=== PATIENT | female | born 1935 | race Caucasian/White ===

== ENCOUNTER 2016-11-23 11:00 | Day surgery (SDC) | payer MEDICARE, BC ==
[~2016-11-23 11:00] MED LIST: Bupivacaine 0.25% SDV* 30 ML ONE
[2016-11-23] MEDS ORDERED: ceFAZolin 2 GM PREMIX (*) 50 ML IVPB ONE (11:21)
[2016-11-23] MEDS ORDERED: fentaNYL* 50 MCG/ML 2 ML VIAL (100 MCG VIAL) ONE (13:10)
[2016-11-23] MEDS ORDERED: Midazolam* 1 MG/ML 2 ML VIAL (2 MG) ONE (13:10)
[2016-11-23] MEDS ORDERED: Lidocaine 2% PF * 5 ML VIAL ONE (13:11)
[2016-11-23] MEDS ORDERED: Propofol* 10 MG/ML 20 ML BTL IV PUSH ONE (13:11)
[2016-11-23] MEDS ORDERED: Acetaminophen TAB* 325 MG PO PRN (13:20)
[2016-11-23] MEDS ORDERED: Ondansetron INJ* 2 MG/ML VIAL IV PRN (13:20)
[2016-11-23 13:54] VITALS: BP 132/64
--- NOTE | 2016-11-25 00:57 | OP ---
OPERATIVE REPORT: DATE OF OPERATION: 11/23/16 DATE OF : 39 SURGEON: Luis Hull MD SHIRT SORTER: None. ANESTHESIOLOGIST: Dr. Lewis. ANESTHESIA: Local MAC. PRE-OP DIAGNOSIS: Left carpal tunnel syndrome. POST-OP DIAGNOSIS: Left carpal tunnel syndrome. OPERATIVE PROCEDURE: Left open carpal tunnel release. INDICATIONS: Caprice has had progressive left carpal tunnel symptoms that are significantly impact ing her life. We talked about risks and benefits. She wanted to proceed. FINDINGS: As expected. ESTIMATED BLOOD LOSS: 2 mL. COMPLICATIONS: None. DESCRIPTION OF PROCEDURE: Caprice was seen in the preoperative holding area. The correct side, si te, and procedure were identified. We came back to the operating room. She got some anesthesia. I infiltrated the operative area with 0.25% plain Marcaine. The arm was then prepped and draped in t he usual fashion. A time-out was performed. I exsanguinated the arm with the Esmarch and the tourniquet was inflated to 250 mmHg. I then made a longitudinal incision over 2 to 3 cm in the typical location for an open carpal tunnel release. Di ssection was carried down through the subcutaneous tissue and palmar fascia. The transverse carpal ligament was released just off the radial aspect of the hook of the hamate. The release was complet ed distally and then proximally, I released the fascia and subcutaneous tissue and retracted that vo larly and ulnarly with a David retractor. Then, I used a tenotomy scissors to release the remainder of the transverse carpal ligament. I checked proximally and distally and there was absolutely no co mpression on the nerve. Therefore, I went ahead and irrigated out the wound. Skin was closed with 4 -0 nylon suture. The wound was dressed with Xeroform, 4x4's, sterile Webril, and an Phoenix bandage. T ourniquet was deflated. She was then taken to the recovery room in stable condition. [id number]/[facility] #: [id number]
== END 2016-11-23 14:05 | disposition home or self-care (01) ==
LOC: OREAST 11:00
PROVIDERS: ATTEND Orthopaedic Surgery Hand Surgery
DX: G56.02 Carpal tunnel syndrome, left upper limb (principal); I10 Essential (primary) hypertension; Z87.891 Personal history of nicotine dependence; M19.90 Unspecified osteoarthritis, unspecified site
CPT/HCPCS: J0690; J2250; J2704; J3010

== ENCOUNTER 2017-02-13 07:30 | Inpatient (IN) | payer MEDICARE, BC ==
--- NOTE | 2017-02-04 20:35 | HP ---
PREOPERATIVE HISTORY AND PHYSICAL: DATE OF SURGERY/ADMISSION: 02/13/17 DATE OF OFFICE VISIT/ENCOUNTER: 01/31/17 ATTENDING SURGEON: Anisa Anne MD * (DICTATED BY SHANTEL LUNA) PROCEDURE: Left total knee replacement. CHIEF COMPLAINT: Left knee pain. HISTORY OF PRESENT ILLNESS: This is a 81-year-old female with over 5 years of increasingly severe left knee pain. 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 She has failed conservative treatment measures and now has elected to proceed with surgical intervention in the form of a left total knee arthroplasty. Surgery is scheduled for 02/13/[address] Anne. PAST MEDICAL HISTORY: 1. Hypertension. 2. Osteoarthritis. PAST SURGICAL HISTORY: 1. Appendectomy. 2. Left carpal tunnel release by Dr. Hull. 3. Tonsillectomy. CURRENT MEDICATIONS: Amlodipine besylate/valsartan 5/160 mg daily. ALLERGIES: TRAMADOL, HYDROCODONE, and FLAGYL cause nausea and vomiting; TESSALON PERLES causes hives. FAMILY MEDICAL HISTORY: Cancer, hypertension. SOCIAL HISTORY: The patient is retired. She lives with her . She exercises sporadically. She denies tobacco use, recreational drug use, and does not drink alcohol. REVIEW OF SYSTEMS: General: Negative for fevers, chills, or night sweats. No known anesthesia problems. HEENT: Negative for headache, lightheadedness, or syncopal episodes. Integumentary: Negative for abrasions, lesions, or open wounds. Cardiothoracic: Positive for hypertension. Negative for chest pain, palpitations, or edema. Pulmonary: Negative for shortness of breath with exertion, chronic cough, COPD. GI: Negative for nausea, vomiting, diarrhea, constipation, or GERD. : Negative for nocturia, urinary frequency, urgency, history of UTIs, or kidney problems. Musculoskeletal: Positive for current complaint. Negative for chronic or intermittent back pain or history of fractures. Neurologic: Negative for paresthesias, numbness, history of seizure , stroke, or epilepsy. Endocrine: Negative for diabetes or thyroid issues. Hematologic: Negative for bleeding disorders, easy bruising, anemia, excessive bleeding, or history of DVT. Infectious Disease: Negative for history of MRSA , hepatitis C, or HIV. PHYSICAL EXAMINATION GENERAL: Well-developed, well-nourished 81-year-old female in no acute distress. VITAL SIGNS: Height 5 feet tall, weight 130 pounds, blood pressure 134/68, pulse rate 76. HEENT: Normocephalic, atraumatic. Pupils are equal, round, and reactive to light and accommodation. Extraocular movements are intact. Throat is clear. NECK: Supple. No palpable lymph nodes. PULMONARY: Lungs are clear to auscultation bilaterally. No wheezes, rales, or rhonchi. ABDOMEN: Positive bowel sounds, soft, nontender. NEUROLOGICAL: Alert and oriented x3. Cranial nerves II through XII are intact. Sensation is intact to light touch. MUSCULOSKELETAL: On exam of her left knee, skin is intact. She has range of motion of approximately 5 degrees to 125 degrees with patellofemoral crepitus. There is tenderness to palpation over both joint lines and a mild joint effusion. 2+ dorsalis pedis pulse and intact sensation. Lower extremity muscle group strengths are intact 5/5. IMAGING STUDIES: X-rays of the left knee show end-stage osteoarthritis. ASSESSMENT: Left knee end-stage osteoarthritis. PLAN: Caprice Ceballos is a 81-year-old female with left knee pain, osteoarthritis. She has failed conservative management and has elected to proceed with a left total knee arthroplasty with Dr. Anne on 02/13/17. Dr. Anne discussed the risks and benefits of surgery at today's visit and all of her questions were answered. Postoperatively, she will use Percocet for pain management, Coumadin for DVT prophylaxis, and also stool softener for constipation caused by narcotic pain medication. She will also have Zofran on hand as needed for nausea. All of these prescriptions were e-scribed to the patient's pharmacy today. We will plan on having her back for followup in the office with Dr. Anne in 2 weeks after surgery. SHANTEL LUNA [id number]/[facility] #: [id number] MTDD
[~2017-02-13 07:30] MED LIST changes: +Buffered Lidocaine 0.9% SYRIN* 5 ML/SYR SYRINGE INTRADERM ONE; -Bupivacaine 0.25% SDV* 30 ML ONE; +Sodium Citrate/Citric Acid* 15 ML UDC PO ONE
--- OUTSIDE RECORDS SUMMARY | 2017-02-13 08:48 | XMS REPORT ---
:1935 External Reference #:[id number] Author Organization [employer] Address [address] [address] Phone [phone] Care Team Providers Name Role Phone Eloisa Cooney NP Primary Care Physician Unavailable Payers Type Date Identification Numbers Payment Provider Subscriber Medicare Primary Effective: Policy Number: Medicare Caprice Varela 2000 [id number] Tucker PayID: [id number] [address] [place] [address] Medigap Part B Expires: 2016 Policy Number: [id number] [facility] Caprice Ceballos PayID: [id number] [address] [place] [address] Medigap Part B Expires: 2016 Policy Number: BS [facility] Caprice Ceballos [id number] PayID: [id number] [address] [address] Medigap Part B Policy Number: [id number] [facility] Caprice Ceballos Group Name: [id number] PayID: [id number] [address] [address] Problems Date Description Provider Status Onset: 09/20/2016 Localized, primary osteoarthritis Anisa Anne M.D. Active Onset: 11/08/2016 Bilateral carpal tunnel syndrome Luis Hull MD Active Family History Date Family Member(s) Problem(s) Comments General Hypertension General Cancer Social History Type Date Description Comments Lives With Occupation Retired ETOH Use Denies alcohol use Smoking Patient has never smoked Exercise Type/Frequency Exercises sporadically Allergies, Adverse Reactions, Alerts Date Description Reaction Status Severity Comments 09/20/2016 Metronidazole active 09/20/2016 Hydrocodone active 09/20/2016 Benzonatate active 01/10/2017 Tramadol Nausea and Vomiting active Severe Medications Medication Date Status Form Strength Qnty SIG Indications Ordering Provider Amlodipine Active Tablets 5-160mg Unknown Besylate-Vals 000 dyan Tramadol Hx Tablets 37.5-325mg 30tabs 1-2 tab Luis Hydrochloride 017 - by mouth MD Della /Acetaminophe every 4-6 n 017 hours as needed Amlodipine Hx Tablets 5mg 1 by Unknown Besylate 000 - mouth every day 017 Valsartan Hx Tablets 160mg 1 by Unknown 000 - mouth every day 017 Medications Administered in Office Medication Date Status Form Strength Qnty SIG Indications Ordering Provider Depomedrol Administered Injection Anisa 40MG 017 Ivana Anne Depomedrol Administered Injection Dirk Wilbert, 40MG 010 Ivana Vital Signs Date Vital Result Comment 01/31/2017 Height 60 inches 5'0" Weight 130.00 lb BP Systolic 134 mmHg BP Diastolic 68 mmHg Respiratory Rate 20 /min Body Temperature 98.5 F Pain Level 0 BMI (Body Mass Index) 25.4 kg/m2 01/10/2017 Height 60 inches 5'0" Weight 126.00 lb Heart Rate 76 /min BP Systolic Sitting 148 mmHg BP Diastolic Sitting 80 mmHg Body Temperature 98.5 F BMI (Body Mass Index) 24.6 kg/m2 12/06/2016 Height 60 inches 5'0" Weight 125.00 lb Heart Rate 72 /min BP Systolic 140 mmHg BP Diastolic 74 mmHg Body Temperature 98.8 F Pain Level 0 BMI (Body Mass Index) 24.4 kg/m2 11/08/2016 Height 60 inches 5'0" Weight 125.00 lb Heart Rate 82 /min BP Systolic Sitting 137 mmHg BP Diastolic Sitting 78 mmHg Respiratory Rate 14 /min Body Temperature 99.2 F Pain Level 0 BMI (Body Mass Index) 24.4 kg/m2 09/20/2016 Height 60 inches 5'0" Weight 130.00 lb Respiratory Rate 18 /min Pain Level 5 only when walking BMI (Body Mass Index) 25.4 kg/m2 Results Description No Information Procedures Date CPT Code Description Status 11/23/2016 56981 Carpal Tunnel Release Completed 09/20/2016 Inject/Drain Joint/Bursa Major Completed 02/02/2010 74276 Xray Knee 3 Views Completed 02/02/2010 14500 Rad Exam; Knee, Ap&L Completed 02/02/2010 Inject/Drain Joint/Bursa Major Completed Encounters Type Date Location Provider CPT E/M Dx Office Visit 11/08/2016 [place] [address] G56.03 1:45p [facility] Office Visit 09/20/2016 [facility] Anisa Anne M.D. 42723 M25.562 9:30a [facility] M25.462 M17.12 Office Visit 01/04/2014 5:26p [facility], Jimena Coyle N.P. 28110 558.9 Hospitalists [phone] Office Visit 01/03/2014 5:25p [facility], Jimena Coyle N.P. 46231 790.6 Hospitalists [phone] Office Visit 02/02/2010 9:00a [facility] M.D. 54109 716.96 [facility] Plan of Care Future Appointment(s):02/23/2017 10:15 am - Anisa Anne M.D. at [facility]02/13/2017 8:30 am - Anisa Anne M.D. at [facility]01/31/2017 - Anisa Anne M.D.M17.12 Unilateral primary osteoarthritis, left kneeFollow up:Follow up: 2 weeks post op
--- OUTSIDE RECORDS SUMMARY | 2017-02-13 08:50 | XMS REPORT ---
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 Type Date Identification Numbers Payment Provider Subscriber Medicare Primary Effective: Policy Number: Medicare Caprice Varela 2012 [id number] [place] PayID: [id number] [address] [place] [address] [place] Policy Number: [id number] BC[employer] Fep Caprice Ceballos PayID: [id number] [address] [address] [place] [address] Commercial Policy Number: [id number] [facility] Ceballos PayID: [id number] [address] [place] [address] Problems Date Description Provider Status Onset: 01/26/2005 Benign essential hypertension Eloisa Cooney, RN MS HVAC ENGINEER Active Family History Date Family Member(s) Problem(s) Comments Father Hypertension Father Cancer, Lung Father Esophageal Constriction Mother Hypertension Mother Cancer, Colon Mother Cancer, Liver First Son Hypertension Second Son Hypertension Paternal Grandfather Cancer Maternal Grandmother Cancer, Colon Maternal Aunts Cancer, Colon Social History Type Date Description Comments Education Highest Level Completed 12th grade Marital Status Legal Status: for 54years(2012) Lives With Spouse Pets None Occupation Retired Occupation from [employer] RIGHT-handed Cigarette Use Former Cigarette Smoker 1/2 Pack Daily for 5 years Cigarette Use quit at age 22's ETOH Use Denies alcohol use Smoking Patient is a former smoker Daily Caffeine does not consume caffeine Allergies, Adverse Reactions, Alerts Date Description Reaction Status Severity Comments 01/05/2014 Flagyl Nausea and Vomiting, nausea active 01/17/2017 Hydrocodone active Severe Nausea 01/17/2017 Tramadol active Severe Nausea 01/17/2017 Tessalon active Hives 01/30/2005 NKDA inactive Medications Medication Date Status Form Strength Qnty SIG Indications Ordering Provider Augmented 01/17 Active Ointment 0.05% 50gm apply to L29.2 Eros Betamethasone affected Eloisa Dipropionate area twice SALVADOR Fisher MS a day prn HVAC ENGINEER Ondansetron 01/17 Active Tablets 4mg 30tabs one-two R11.0 ROSAURA Cooney tabs as Eloisa needed Phillip RN MS every 8 HVAC ENGINEER hours for nausea Amlodipine 07/04 Active Tablets 5-160mg 90tabs 1 by mouth I10 Eros Besylate-Valsa every day Eloisa rtan Phillip RN MS HVAC ENGINEER Amlodipine 06/15 Hx Tablets 10mg 90tabs 1 by mouth I10 Chase Cooneyylate every day Eloisa Fisher RN MS 07/26 Zofran 04/08 Hx Tablets 4mg 30tabs 1-2 tabs Eros every 6 Eloisa - hours as Phillip RN MS 06/15 needed for nausea or vomiting( er) Ciprofloxacin 01/05 Hx Tablets 500mg 14tabs 1 by mouth ROSAURA Flores twice a Suzy - day MD Vanesa 01/16 Ondansetron 01/05 Hx Tablets 4mg 6tabs 1 tablet Dispers by mouth Suzy - every 6-8 MD Vanesa 02/18 hours needed for nausea/vom iting Clindamycin 01/05 Hx Capsules 300mg 15caps three MarkROSAURA times a Suzy - day x 5 MD Vanesa Amlodipine 12/24 Hx Tablets 5mg 90tabs 1 by mouth I10 Chase Cooneyylate every day Eloisa Fisher RN MS 06/15 HVAC ENGINEER Metronidazole 12/24 Hx Tablets 500mg 21tabs 1 tab 789.04 Eros, three Eloisa - times a SALVADOR Fisher MS 01/05 day x 7 HVAC ENGINEER days Ciprofloxacin 12/24 Hx Tablets 250mg 10tabs 1 by mouth 789.04 ROSAURA Cooney twice a Eloisa - day till Phillip RN MS 12/24 gone Glucosamine 12/24 Hx Capsules 1500Com One tid Eros 1500 Eloisa iFsher RN MS 01/17 Sulfamethoxazo 12/24 Hx Tablets 800-160mg 14tabs one tab 789.04 lilliam Cooney/Trimethopri twice a Eloisa chapa DS - day x SALVADOR Fisher MS 12/31 7days Amlodipine 11/20 Hx Tablets 2.5mg 90tabs 1 by mouth 401.1 Chase Cooney every day Eloisa Fisher RN MS 12/24 Zithromax 01/20 Hx Tablets 250mg 1tabs take as 465.9 Darío, Z- directed Mateusz Burk MD 12/24 Azithromycin 12/26 Hx Tablets 250mg 6tabs 2 tabs day 465.9 one and 1 Eloisa - tab daily SALVADOR Fisher MS 01/20 till Medrol Dosepak 12/26 Hx Tablets 4mg 1tabs use as 465.9 directed Eloisa Fisher RN MS 12/24 Benicar 11/07 Hx Tablets 20mg 90tabs 1 po qd 401.1 Eloisa Fisher RN MS 12/26 Prednisone 01/31 Hx Tablets 10mg 30tabs 4Tabs qam 493.00 X 3 Days Eloisa - Then 3 PO SALVADOR Fisher MS 10/30 qam X 3D Then 2 PO qam X 3D Then 1 PO qam X 3 D Azithromycin 01/25 Hx Tablets 250mg 1Pack 2 tabs day 466.0 guicho one and 1 Caitlin - tab daily MD Myah 10/30 till Ventolin HFA 01/25 Hx Aerosol 108(90Bas 1Can 2 p qid 466.0 Shaquille e) mcg/ac prn cough, Caitlin - wheeze MD Myah 06/15 Actonel 05/24 Hx Tablets 150mg 3tabs one tab 733.90 Darío monthly as Mateusz Burk. 12/24 Azithromycin 04/08 Hx Tablets 250mg 6tabs 2 tabs day 386.11 Eros one and 1 Eloisa - tab daily Phillip, RN MS 04/18 till gone Diprolene 04/08 Hx Ointment 0.05% 50gm apply to L29.2 affected Caitlin - area twice MD Myah 01/17 a day prn Advair Diskus 04/08 Hx Misc 100-50mcg 1units inhale 1 493.00 /Dose dose by Eloisa - mouth Phillip RN MS 04/08 twice a day Advair HFA 04/08 Hx Aerosol 115-21mcg 2 Puffs 493.00 /Act bid Eloisa Fisher RN MS 01/25 Fosamax Plus 04/21 Hx 5600Units 1 po qwk Shaquille, Caitlin Chapa MD 10/10 Azithromycin 03/03 Hx Tablets 250mg 6tabs 2 tabs day 465.9 one and 1 Eloisa - tab daily SALVADOR Fisher MS 03/13 till gone Nasonex 03/03 Hx Suspension 50mcg/Act Samples 2 Sprays 465.9 Each Eloisa - Nostril SALVADOR Fisher MS 03/13 Daily Duoneb 07/01 Hx Solution for use in her Eloisa - nebulizer Phillip RN MS 04/08 at home tid Prednisone 06/30 Hx Tablets 10mg 30tabs 4Tabs qam 493.00 guicho X 3 Days Caitlin - Then 3 PO MD Myah 03/03 qam X 3D Then 2 PO qam X 3D Then 1 PO qam X 3 D Prednisone 05/27 Hx Tablets 10mg 50tabs 4Tabs qam 493.00 guicho X 5 Days Caitlin - Then 3 PO MD Myah 06/30 qam X 5D Then 2 PO qam X 5D Then 1 PO qam X 5 D Prednisone 05/09 Hx Tablets 20mg 6tabs 2 Q Am X 3 493.00 Shaquille D Caitlin Chapa MD 05/27 Benicar 05/06 Hx Tablets 20mg 90tabs 1 po qd 401.1 Eloisa Fisher RN MS 10/10 HVAC ENGINEER /2011 Soma 05/06 Hx Tablets 350mg 30tabs 1/2-1 PO 724.3 guicho QHS prn Caitlin Chapa MD 06/30 Darvocet-N 100 05/06 Hx Tablets 100 40tabs 1 po qid 724.3 guicho prn pain Caitlin Chapa MD 06/30 Symbicort 05/06 Hx Aerosol 80-4.5 Sample 2P bid 493.00 Shaquille Rinse Caitlin - Eugene Chapa MD 05/06 After Singulair 05/06 Hx Tablets 10mg 30tabs One PO qd 493.00 Shaquille prn Caitlin Chapa MD 03/03 Fexofenadine 05/06 Hx Tablets 180mg 90tabs 1 po qd 493.00 Shaquille prn Caitlin Chapa MD 03/03 Symbicort 05/06 Hx Aerosol 160-4.5 3units 2p bid 493.00 rinse Caitlin - eugene Chapa MD 04/08 after Hydrocodone/Ac 04/17 Hx Tablets 5-500mg 100tabs 1 tab 724.3 Eros, etamin every 4 Eloisa - hours for SALVADOR Fisher MS 05/06 pain as needed Prednisone 04/17 Hx Tablets 10mg 30tabs 4 Tabs 466.0 For3 Eloisa - Days,3 Phillip RN MS 05/06 Tabs For 3 Days, 2 Tabs For 3 Days 1 Tab For 3 Days Azmacort 04/17 Hx Aerosol 75mcg/Act sample 2 466.0 inhalation Eloisa - s tid Phillip RN MS 05/06 Prednisone 03/19 Hx Tablets 10mg 30tabs 4Tabs qam 493.00 guicho X 3 Days Caitlin - Then 3 PO MD Myah 04/05 qam X 3D Then 2 PO qam X 3D Then 1 PO qam X 3 D 4 Duoneb 03/19 Hx Solution 1Box 1 qid prn Shaquille Caitlin Chapa MD 04/05 Nebulizer 03/19 Hx dx: guicho extrinsic Caitlin - asthma MD Myah 04/05 Avelox 02/25 Hx Tablets 400mg 7tabs 1 PO qd X 466.0 7D Caitlin Chapa MD 03/05 Prednisone 02/25 Hx Tablets 20mg 6tabs 2 Q Am X 3 466.0 D Caitlin Chapa MD 03/05 Proair Hfa 02/25 Hx Aerosol 108mcg/Ac 1Can 2 P bid 466.0 guicho t And Up To Caitlin - qid prn MD Myah 04/08 Azithromycin 02/13 Hx Tablets 250mg 6tabs 2 tabs day 466.0 one and 1 Eloisa - tab daily SALVADOR Fisher MS 02/23 till gone Robitussin ac 02/13 Hx 120cc 1-2 tsp 466.0 qid prn Eloisa Fisher RN MS 02/23 Diprolene 09/04 Hx 1Tube To Aff 616.10 Shaquille, Oint Area bid Caitlin - prn X 2 MD Myah 06/30 Weeks Only Desonide 07/27 Hx Cream 0.05% 1Tube apply bid 616.10 sparingly Eloisa Fisher RN MS 06/30 Fosamax W/ Vit 04/10 Hx Tablets 70mg 12tabs 1 po qweek Vickie, on empty Caitlin - stomach as MD Myah 04/21 Singulair 02/17 Hx Tablets 10mg 30tabs 1 po qd Trabout Mateusz Burk MD 07/27 Robitussin A-c 01/30 Hx Syrup 100mg;10m 120ml 2 TSP QHS lena g/5ML prn Cough Mateusz Burk MD 05/11 Ketek 01/30 Hx Tablets 400mg 20tabs 2 po qd 465.9 Trablena Mateusz Burk MD 05/11 Z-Pack 01/26 Hx Capsules 250mg 1Pack as 465.9 Eros directed Eloisa Fisher RN MS 01/30 Tessalon 01/24 Hx Perles 100mg 40units 1 po tid [facility] Caitlin Chapa MD 01/30 Desonide 01/10 Hx Cream 0.05% 15gm rub in [facility] sparingly Caitlin Chapa MD 02/13 Medications Administered in Office Medication Date Status Form Strength Qnty SIG Indications Ordering Provider Depo Medrol 40 Administered Injection Trabout, MG 001 MD Wm Immunizations CPT Code Status Date Vaccine Lot # [id number] Given 10/31/2016 Influenza Vac, 3 Yrs & Older, Quadrivalent, [id number] Split, [place] 98[address] Given 02/16/2016 Prevnar 13 Pneumococal Conjugate Vaccine [id number] 23520 Given 10/25/2015 Influenza Vac, 3 Yrs & Older, Quadrivalent, [id number] Split, [place] Use 04273 Given 11/23/2014 Influenza Vac, 3 Yrs & Older, Quadrivalent, Split, [place] Use 13565 Given 11/23/2014 Influenza Vac, 3 Yrs & Older, Quadrivalent, [id number] Split, Im Use Q2038 Given 11/20/2013 Fluzone Trivalent Immunization [id number] 81538 Given 11/07/2012 Pneumococcal 23 Immunization Adult Or [id number] Immunosuppressed Patient Q2038 Given 11/07/2012 Fluzone Trivalent Immunization 41007 Given 11/07/2012 Pneumococcal 23 Immunization Adult Or Immunosuppressed Patient Q2038 Given 11/07/2012 Fluzone Trivalent Immunization [id number] Q2038 Given 11/28/2011 Fluzone Trivalent Immunization [id number] Q2038 Given 11/22/2010 Fluzone Trivalent Immunization [id number] 73247 Given 05/24/2010 Tetanus And Diptheria Toxoids For Adult [id number] Use-preservative free 54111 Given 11/17/2009 Afluria Or Fluvirin Flu Vac Intramuscular [id number] 14570 Given 03/08/2009 Influenza Virus Vaccine Pandemic Formulation - [id number] 81641 Given 10/27/2008 Afluria Or Fluvirin Flu Vac Intramuscular [id number] 80535 Given 10/27/2008 Zoster (Zostavax) [id number] 19898 Given 10/27/2008 Zoster (Zostavax) 76831 Given 11/21/2007 Afluria Or Fluvirin Flu Vac Intramuscular 70161 Given 11/21/2007 Afluria Or Fluvirin Flu Vac Intramuscular [id number] 85491 Given 12/05/2006 Afluria Or Fluvirin Flu Vac Intramuscular 22710 Given 12/05/2006 Afluria Or Fluvirin Flu Vac Intramuscular [id number] 10542 Given 12/18/2005 Afluria Or Fluvirin Flu Vac Intramuscular [id number] 46116 Given 12/14/2005 Afluria Or Fluvirin Flu Vac Intramuscular 57503 Given 12/12/2004 Afluria Or Fluvirin Flu Vac Intramuscular [id number] 73289 Given 12/01/2003 Afluria Or Fluvirin Flu Vac Intramuscular 16561 Given 12/18/2002 Afluria Or Fluvirin Flu Vac Intramuscular 07662 Given 05/29/2002 Pneumococcal 23 Immunization Adult Or Immunosuppressed Patient 30697 Given 12/16/2001 Afluria Or Fluvirin Flu Vac Intramuscular 79752 Given 01/18/2001 Afluria Or Fluvirin Flu Vac Intramuscular 54248 Given 01/30/2000 Influenza Virus Vaccine, Whole Virus, Intramuscular Or Jet Inj. [id number] Refused 06/24/2014 Fluzone Trivalent Immunization Vital Signs Date Vital Result Comment 01/17/2017 Weight 130.25 lb Heart Rate 80 /min BP Systolic 156 mmHg BP Diastolic 81 mmHg Height 59.5 inches 4'11.50" BMI (Body Mass Index) 25.9 kg/m2 07/26/2016 Weight 132.00 lb Heart Rate 76 /min BP Systolic 156 mmHg BP Diastolic 80 mmHg Height 59.5 inches 4'11.50" BMI (Body Mass Index) 26.2 kg/m2 06/15/2016 Weight 131.38 lb Heart Rate 80 /min BP Systolic 155 mmHg BP Diastolic 74 mmHg Height 59.5 inches 4'11.50" BMI (Body Mass Index) 26.1 kg/m2 02/16/2016 Body Temperature 98.3 F Weight 132.00 lb Heart Rate 82 /min BP Systolic 159 mmHg BP Diastolic 80 mmHg Height 60 inches 5'0" BMI (Body Mass Index) 25.8 kg/m2 02/18/2014 Weight 114.12 lb Heart Rate 81 /min BP Systolic 145 mmHg BP Diastolic 55 mmHg Height 60 inches 5'0" BMI (Body Mass Index) 22.3 kg/m2 01/16/2014 Weight 117.00 lb Heart Rate 75 /min BP Systolic 140 mmHg BP Diastolic 75 mmHg Height 60 inches 5'0" BMI (Body Mass Index) 22.8 kg/m2 01/05/2014 Weight 118.00 lb Heart Rate 85 /min BP Systolic 149 mmHg BP Diastolic 83 mmHg Height 60 inches 5'0" BMI (Body Mass Index) 23.0 kg/m2 12/31/2013 Weight 119.38 lb Heart Rate 85 /min BP Systolic 144 mmHg BP Diastolic 72 mmHg Height 60 inches 5'0" BMI (Body Mass Index) 23.3 kg/m2 12/24/2013 Weight 123.12 lb Heart Rate 89 /min BP Systolic 143 mmHg BP Diastolic 76 mmHg Height 60 inches 5'0" BMI (Body Mass Index) 24.0 kg/m2 11/20/2013 Body Temperature 97.9 F Weight 124.00 lb Heart Rate 74 /min BP Systolic 173 mmHg BP Diastolic 84 mmHg BP Systolic Recheck 176 mmHg BP Diastolic Recheck 88 mmHg Height 60 inches 5'0" BMI (Body Mass Index) 24.2 kg/m2 12/26/2012 Body Temperature 98.4 F Weight 130.00 lb Heart Rate 80 /min BP Systolic 134 mmHg BP Diastolic 74 mmHg 11/07/2012 Weight 132.00 lb Heart Rate 78 /min BP Systolic 194 mmHg BP Diastolic 76 mmHg BP Systolic Recheck 165 mmHg BP Diastolic Recheck 77 mmHg Height 60 inches 5'0" BMI (Body Mass Index) 25.8 kg/m2 01/26/2012 Body Temperature 98.3 F Weight 135.00 lb Heart Rate 76 /min BP Systolic 146 mmHg BP Diastolic 96 mmHg Height 60 inches 5'0" BMI (Body Mass Index) 26.4 kg/m2 11/28/2011 Weight 136.00 lb Heart Rate 75 /min BP Systolic 167 mmHg BP Diastolic 75 mmHg 10/11/2011 Weight 136.00 lb Heart Rate 81 /min BP Systolic 163 mmHg BP Diastolic 77 mmHg 05/24/2010 Weight 141.00 lb Heart Rate 78 /min BP Systolic 157 mmHg BP Diastolic 80 mmHg Height 61.5 inches 5'1.50" BMI (Body Mass Index) 26.2 kg/m2 04/29/2009 Weight 138.00 lb Heart Rate 74 /min BP Systolic 153 mmHg BP Diastolic 79 mmHg Height 61 inches 5'1" BMI (Body Mass Index) 26.1 kg/m2 Urine Dipstick - Blood 1+ And WBC Urine Dipstick - Protein NEGATIVE Urine Dipstick - Glucose NEGATIVE 04/08/2009 Weight 139.00 lb Heart Rate 96 /min BP Systolic 183 mmHg 161/85 BP Diastolic 87 mmHg 161/85 03/03/2008 Body Temperature 98.7 F Weight 140.00 lb Heart Rate 80 /min BP Systolic 142 mmHg BP Diastolic 62 mmHg Height 60 inches 5'0" BMI (Body Mass Index) 27.3 kg/m2 07/02/2007 Weight 140.00 lb Heart Rate 90 /min BP Systolic 144 mmHg BP Diastolic 78 mmHg Height 60 inches 5'0" BMI (Body Mass Index) 27.3 kg/m2 Urine Dipstick - Blood NEGATIVE Urine Dipstick - Protein NEGATIVE Urine Dipstick - Glucose NEGATIVE 07/01/2007 Body Temperature 98.3 F Weight 141.00 lb Heart Rate 93 /min BP Systolic 146 mmHg BP Diastolic 79 mmHg Height 60 inches 5'0" BMI (Body Mass Index) 27.5 kg/m2 05/28/2007 Weight 140.00 lb Heart Rate 97 /min BP Systolic 147 mmHg BP Diastolic 70 mmHg Height 60 inches 5'0" BMI (Body Mass Index) 27.3 kg/m2 05/10/2007 Body Temperature 99.0 F Weight 140.00 lb Heart Rate 75 /min BP Systolic 153 mmHg BP Diastolic 85 mmHg Height 60 inches 5'0" BMI (Body Mass Index) 27.3 kg/m2 05/07/2007 Body Temperature 97.7 F Weight 141.00 lb Heart Rate 80 /min BP Systolic 177 mmHg Auto BP Diastolic 85 mmHg Auto BP Systolic Recheck 178 mmHg Pradeep BP Diastolic Recheck 78 mmHg Pradeep Height 60 inches 5'0" BMI (Body Mass Index) 27.5 kg/m2 04/18/2007 Body Temperature 98.5 F Weight 142.00 lb Heart Rate 100 /min BP Systolic 153 mmHg BP Diastolic 87 mmHg Height 60 inches 5'0" BMI (Body Mass Index) 27.7 kg/m2 04/05/2007 Weight 144.00 lb Heart Rate 78 /min BP Systolic 148 mmHg BP Diastolic 79 mmHg Height 60 inches 5'0" BMI (Body Mass Index) 28.1 kg/m2 03/22/2007 Body Temperature 98.1 F Weight 142.00 lb Heart Rate 100 /min BP Systolic 165 mmHg Auto BP Diastolic 88 mmHg Auto BP Systolic Recheck 148 mmHg Pradeep BP Diastolic Recheck 76 mmHg Pradeep Height 60 inches 5'0" BMI (Body Mass Index) 27.7 kg/m2 03/19/2007 Body Temperature 97.1 F Weight 142.00 lb Heart Rate 81 /min BP Systolic 155 mmHg BP Diastolic 77 mmHg Height 60 inches 5'0" BMI (Body Mass Index) 27.7 kg/m2 03/05/2007 Weight 139.00 lb Heart Rate 82 /min BP Systolic 145 mmHg BP Diastolic 77 mmHg Height 60 inches 5'0" BMI (Body Mass Index) 27.1 kg/m2 02/25/2007 Body Temperature 97.9 F Weight 137.00 lb Heart Rate 70 /min BP Systolic 155 mmHg BP Diastolic 80 mmHg Height 60 inches 5'0" BMI (Body Mass Index) 26.8 kg/m2 02/13/2007 Body Temperature 98.7 F Weight 139.00 lb Heart Rate 71 /min BP Systolic 155 mmHg BP Diastolic 82 mmHg Height 60 inches 5'0" BMI (Body Mass Index) 27.1 kg/m2 12/05/2006 Body Temperature 98.2 F Height 60 inches 5'0" 09/04/2005 Body Temperature 98.7 F Weight 134.00 lb Heart Rate 76 /min BP Systolic 138 mmHg BP Diastolic 80 mmHg Height 60 inches 5'0" BMI (Body Mass Index) 26.2 kg/m2 07/27/2005 Weight 139.00 lb Heart Rate 90 /min BP Systolic 182 mmHg BP Diastolic 82 mmHg Height 60 inches 5'0" BMI (Body Mass Index) 27.1 kg/m2 04/10/2005 Body Temperature 97.6 F Weight 139.00 lb Heart Rate 80 /min BP Systolic 140 mmHg BP Diastolic 90 mmHg 03/27/2005 Body Temperature 98.3 F Weight 138.00 lb Heart Rate 76 /min BP Systolic 146 mmHg BP Diastolic 88 mmHg 02/17/2005 Body Temperature 98.1 F Weight 135.00 lb Heart Rate 80 /min BP Systolic 156 mmHg BP Diastolic 77 mmHg 01/30/2005 Body Temperature 97.6 F Weight 165.00 lb Heart Rate 90 /min BP Systolic 132 mmHg BP Diastolic 76 mmHg 01/26/2005 Body Temperature 99.1 F Weight 137.00 lb Heart Rate 96 /min BP Systolic 152 mmHg BP Diastolic 82 mmHg Results Test Date Test Result H/L Range Note Laboratory test finding 01/17/2017 Urine Culture <pending> Basic (BMP) 07/26/2016 Sodium 139 mmol/L 135-146 1, 2 Potassium 5.9 No visible h <SEE NOTE> mmol/L High 3.5-5.2 1, 3 Chloride# 103 mmol/L 97-110 1, 4 Carbon Dioxide 30 mmol/L 24-34 1 Glucose 102 mg/dL 70-105 1 BUN 20 mg/dL 6-26 1 Creatinine 0.6 mg/dL 0.5-1.4 1 Calcium 9.5 mg/dL 8.5-10.2 1 Non Kirti Egfr >60 >60 1, 5 Kirti Egfr >60 >60 1, 6 Anion Gap 12 mmol/L 7-16 1, 7 Comprehensive Metabolic (CMP) 06/15/2016 Sodium 140 mmol/L 135-146 8 Potassium 5.6 No visible h <SEE NOTE> mmol/L High 3.5-5.2 9 Chloride# 101 mmol/L 97-110 10 Carbon Dioxide 30 mmol/L 24-34 Glucose 98 mg/dL 70-105 BUN 14 mg/dL 6-26 Creatinine 0.6 mg/dL 0.5-1.4 Calcium 9.6 mg/dL 8.5-10.2 Total Protein 7.7 g/dL 6.0-8.0 Albumin 4.7 g/dL 3.6-4.9 Globulin 3.0 g/dL 2.0-3.5 A/G Ratio 1.6 Ratio 1.0-2.2 Total Bilirubin 1.3 mg/dL 0.1-1.3 Alkaline Phosphatase 91 U/L 24-140 Alt 10 U/L 3-42 Ast 17 U/L 8-42 Kirti Egfr >60 >60 11 Non Kirti Egfr >60 >60 12 Anion Gap 15 mmol/L 7-16 13 Lipid 06/15/2016 Cholesterol 219 mg/dL High 50-199 Triglycerides 101 mg/dL 30-200 HDL 67 mg/dL 35-85 14 Chol/ HDL Ratio 3.3 ratio Low 3.7-5.6 VLDL 20 mg/dL 2-29 LDL (Calc) 132 mg/dL High 20-99 15 CBC With Auto Diff 06/15/2016 WBC 9.0 K/uL 4.1-11.0 RBC 5.19 M/uL 4.00-5.40 Hemoglobin 14.7 gm/dL 12.0-16.0 Hematocrit 44.6 % 36.0-47.0 MCV 85.9 fL 80.0-97.0 MCH 28.3 pg 27.0-32.0 MCHC 32.9 g/dL 32.0-36.0 RDW 14.3 % 11.5-14.5 PLT Count 409 K/ul High 140-400 Neutrophil 70.3 % 35.0-75.0 Lymphocyte 20.8 % 16.0-52.0 Monocyte 5.5 % 2.0-10.0 Eosinophil 2.4 % 0.0-5.0 Basophil 1.0 % 0.0-4.0 Abs Neutrophils 6.3 K/uL 2.1-8.0 Abs Lymphocytes 1.9 K/uL 0.8-5.5 Abs Monocytes 0.5 K/uL 0.1-1.0 Abs Eosinophils 0.2 K/uL 0.0-0.5 Abs Basophils 0.1 K/uL 0.0-0.3 CBC With Auto Diff 03/14/2016 WBC 7.5 K/uL 4.1-11.0 RBC 4.88 M/uL 4.00-5.40 Hemoglobin 13.8 gm/dL 12.0-16.0 Hematocrit 41.8 % 36.0-47.0 MCV 85.5 fL 80.0-97.0 MCH 28.3 pg 27.0-32.0 MCHC 33.0 g/dL 32.0-36.0 RDW 14.2 % 11.5-14.5 PLT Count 409 K/ul High 140-400 Neutrophil 62.3 % 35.0-75.0 Lymphocyte 27.5 % 16.0-52.0 Monocyte 6.2 % 2.0-10.0 Eosinophil 3.2 % 0.0-5.0 Basophil 0.8 % 0.0-4.0 Abs Neutrophils 4.7 K/uL 2.1-8.0 Abs Lymphocytes 2.1 K/uL 0.8-5.5 Abs Monocytes 0.5 K/uL 0.1-1.0 Abs Eosinophils 0.2 K/uL 0.0-0.5 Abs Basophils 0.1 K/uL 0.0-0.3 CBC With Auto Diff 02/16/2016 WBC 9.4 K/uL 4.1-11.0 RBC 5.06 M/uL 4.00-5.40 Hemoglobin 14.2 gm/dL 12.0-16.0 Hematocrit 43.2 % 36.0-47.0 MCV 85.5 fL 80.0-97.0 MCH 28.0 pg 27.0-32.0 MCHC 32.8 g/dL 32.0-36.0 RDW 14.2 % 11.5-14.5 PLT Count 438 K/ul High 140-400 Neutrophil 68.6 % 35.0-75.0 Lymphocyte 22.2 % 16.0-52.0 Monocyte 5.4 % 2.0-10.0 Eosinophil 3.1 % 0.0-5.0 Basophil 0.7 % 0.0-4.0 Abs Neutrophils 6.4 K/uL 2.1-8.0 Abs Lymphocytes 2.1 K/uL 0.8-5.5 Abs Monocytes 0.5 K/uL 0.1-1.0 Abs Eosinophils 0.3 K/uL 0.0-0.5 Abs Basophils 0.1 K/uL 0.0-0.3 Comprehensive Metabolic 01/12/2014 Sodium 136 Testing perf 134-142 1, 16 (CMP) <SEE NOTE> mmol/L Potassium 5.2 No visible h <SEE NOTE> mmol/L 3.5-5.2 1, 17 Chloride 100 mmol/L 97-109 1 Carbon Dioxide 29 mmol/L 24-34 1 Glucose 99 mg/dL 70-105 1 BUN 14 mg/dL 6-26 1 Creatinine 0.6 mg/dL 0.5-1.4 1 Calcium 9.8 mg/dL 8.5-10.2 1 Total Protein 6.9 g/dL 6.0-8.0 1 Albumin 4.4 g/dL 3.6-4.9 1 Globulin 2.5 g/dL 2.0-3.5 1 A/G Ratio 1.8 Ratio 1.0-2.2 1 Total Bilirubin 1.2 mg/dL 0.1-1.3 1 Alkaline Phosphatase 57 U/L 24-140 1 Alt 18 U/L 3-42 1 Ast 14 U/L 8-42 1 Anion Gap 12 mmol/L 6-14 1 Kirti Egfr >60 >60 1, 18 Non Kirti Egfr >60 >60 1, 19 Urine Microscopic Only -RL 12/24/2013 Urine WBC 3.3 [HPF] (0-8) 20 Urine RBC 2.3 [HPF] (0-3) 20 Epithelial Cells NEGATIVE [HPF] (Neg) 20 Bacteria NEGATIVE [HPF] (Neg) 20 Hyaline Casts 2.75 [LPF] (0-5) 20, 21 CBC With Auto Diff 12/24/2013 WBC 8.2 K/uL 4.1-11.0 20 RBC 5.00 M/uL 4.00-5.40 20 Hemoglobin 15.1 gm/dL 12.0-16.0 20 Hematocrit 43.6 % 36.0-47.0 20 MCV 87.2 fL 80.0-97.0 20 MCH 30.1 pg 27.0-32.0 20 MCHC 34.5 g/dL 32.0-36.0 20 RDW 13.4 % 11.5-14.5 20 PLT Count 354 K/ul 140-400 20 Neutrophil 69.7 % 35.0-75.0 20 Lymphocyte 21.7 % 16.0-52.0 20 Monocyte 6.1 % 2.0-10.0 20 Eosinophil 1.6 % 0.0-5.0 20 Basophil 0.9 % 0.0-4.0 20 Abs Neutrophils 5.7 K/uL 2.1-8.0 20 Abs Lymphocytes 1.8 K/uL 0.8-5.5 20 Abmon 0.5 K/uL 0.1-1.0 20 Abs Eosinophils 0.1 K/uL 0.0-0.5 20 Abs Basophils 0.1 K/uL 0.0-0.3 20 Comprehensive Metabolic (CMP) 12/24/2013 Sodium 140 mmol/L 134-142 20 Potassium 4.4 mmol/L 3.5-5.2 20 Chloride 102 mmol/L 97-109 20 Carbon Dioxide 29 mmol/L 24-34 20 Glucose 94 mg/dL 70-105 20 BUN 14 mg/dL 6-26 20 Creatinine 0.6 mg/dL 0.5-1.4 20 Calcium 9.5 mg/dL 8.5-10.2 20 Total Protein 7.4 g/dL 6.0-8.0 20 Albumin 4.5 g/dL 3.6-4.9 20 Globulin 2.9 g/dL 2.0-3.5 20 A/G Ratio 1.6 Ratio 1.0-2.2 20 Total Bilirubin 1.2 mg/dL 0.1-1.3 20 Alkaline Phosphatase 78 U/L 24-140 20 Alt 10 U/L 3-42 20 Ast 18 U/L 8-42 20 Anion Gap 13 mmol/L 6-14 20 Kirti Egfr >60 >60 20, 22 Non Kirti Egfr >60 >60 20, 23 Laboratory test finding 12/24/2013 Lipase 21 U/L 11-82 20 CBC With Auto Diff 11/07/2012 WBC 7.6 K/uL 4.1-11.0 24 RBC 4.80 M/uL 4.00-5.40 24 Hemoglobin 14.3 gm/dL 12.0-16.0 24 Hematocrit 41.7 % 36.0-47.0 24 MCV 86.8 fL 80.0-97.0 24 MCH 29.9 pg 27.0-32.0 24 MCHC 34.4 g/dL 32.0-36.0 24 RDW 13.8 % 11.5-14.5 24 PLT Count 399 K/ul 140-400 24 Neutrophil 64.3 % 35.0-75.0 24 Lymphocyte 22.9 % 16.0-52.0 24 Monocyte 6.2 % 2.0-10.0 24 Eosinophil 5.2 % High 0.0-5.0 24 Basophil 1.4 % 0.0-4.0 24 Abs Neutrophils 4.9 K/uL 2.1-8.0 24 Abs Lymphocytes 1.7 K/uL 0.8-5.5 24 Abs Monocytes 0.5 K/uL 0.1-1.0 24 Abs Eosinophils 0.4 K/uL 0.0-0.5 24 Abs Basophils 0.1 K/uL 0.0-0.3 24 Comprehensive Metabolic (CMP) 11/07/2012 Sodium 137 mmol/L 134-142 24 Potassium 4.9 mmol/L 3.5-5.2 24 Chloride 101 mmol/L 97-109 24 Carbon Dioxide 31 mmol/L 24-34 24 Glucose 90 mg/dL 70-105 24 BUN 23 mg/dL 6-26 24 Creatinine 0.7 mg/dL 0.5-1.4 24 Calcium 9.4 mg/dL 8.5-10.2 24 Total Protein 7.2 g/dL 6.0-8.0 24 Albumin 4.5 g/dL 3.6-4.9 24 Globulin 2.7 g/dL 2.0-3.5 24 A/G Ratio 1.7 Ratio 1.0-2.2 24 Total Bilirubin 1.0 mg/dL 0.1-1.3 24 Alkaline Phosphatase 69 U/L 24-140 24 Alt 11 U/L 3-42 24 Ast 19 U/L 8-42 24 Anion Gap 10 mmol/L 6-14 24 Kirti Egfr >60 >60 24, 25 Non Kirti Egfr >60 >60 24, 26 Lipid 11/07/2012 Cholesterol 213 mg/dL High 50-199 24 Triglycerides 105 mg/dL 30-200 24 HDL 57 mg/dL 35-85 24, 27 Chol/ HDL Ratio 3.7 ratio 3.7-5.6 24 VLDL 21 mg/dL 2-29 24 LDL (Calc) 135 mg/dL High 20-99 24, 28 Laboratory test 11/07/2012 Urine Culture Microbiology res finding <SEE NOTE> Laboratory test 11/07/2012 [facility] Pap SEE NOTE , 30 finding Laboratory test 11/07/2012 TSH 0.89 uIU/mL 0.34-5.60 24 finding Affirm 10/11/2011 Trichomonas Negative Negative 24 Vaginalis Gardnerella Vaginalis Negative Negative 24 Zara Species Negative Negative 24 Laboratory test finding 05/24/2010 TSH 0.77 uIU/mL 0.34-5.60 24 CBC With Auto Diff 05/24/2010 WBC 8.1 K/uL 4.1-11.0 24 RBC 4.77 M/uL 4.00-5.40 24 Hemoglobin 14.0 gm/dL 12.0-16.0 24 Hematocrit 41.9 % 36.0-47.0 24 MCV 87.8 fL 80.0-97.0 24 MCH 29.4 pg 27.0-32.0 24 MCHC 33.4 g/dL 32.0-36.0 24 RDW 13.7 % 11.5-14.5 24 PLT Count 357 K/ul 140-400 24 Neutrophil 73.0 % 35.0-75.0 24 Lymphocyte 18.1 % 16.0-52.0 24 Monocyte 5.6 % 2.0-10.0 24 Eosinophil 2.8 % 0.0-5.0 24 Basophil 0.5 % 0.0-4.0 24 Abs Neutrophils 5.9 K/uL 2.1-8.0 24 Abs Lymphocytes 1.5 K/uL 0.8-5.5 24 Abs Monocytes 0.5 K/uL 0.1-1.0 24 Abs Eosinophils 0.2 K/uL 0.0-0.5 24 Abs Basophils 0.0 K/uL 0.0-0.3 24 Laboratory test finding 05/24/2010 Vit D,25 Hydroxy 35 ng/mL 31-100 24 Comprehensive Metabolic (CMP) 05/24/2010 Sodium 140 mmol/L 135-144 24 Potassium 5.6 No visible h <SEE NOTE> High 3.6-5.2 24, 31 mmol/L Chloride 106 mmol/L 97-110 24 Carbon Dioxide 26 mmol/L 23-32 24 Glucose 101 mg/dL 70-105 24 BUN 18 mg/dL 6-22 24 Creatinine 0.6 mg/dL 0.5-1.3 24 Calcium 9.4 mg/dL 8.6-10.2 24 BUN/CR 30 ratio High 12-20 24 Total Protein 7.0 g/dL 5.8-7.8 24 Albumin 4.2 g/dL 3.5-4.8 24 Globulin 2.8 g/dL 2.0-3.5 24 A/G Ratio 1.5 Ratio 1.0-2.2 24 Total Bilirubin 1.4 mg/dL High 0.3-1.2 24 Alkaline Phosphatase 74 U/L 24-140 24 Alt 18 U/L 5-45 24 Ast 22 U/L 12-40 24 Anion Gap 14 mmol/L 8-16 24 Non Kirti Egfr >60 >60 24, 32 Kirti Egfr >60 >60 24, 33 Lipid 05/24/2010 Cholesterol 223 mg/dL High 50-199 24 Triglycerides 111 mg/dL 10-150 24 HDL 54 mg/dL 35-85 24, 34 Chol/ HDL Ratio 4.1 ratio 3.7-5.6 24 VLDL 22 mg/dL 2-29 24 LDL (Calc) 147 mg/dL High 20-129 24, 35 Laboratory test finding 04/29/2009 [facility] Pap - [place] (SEE NOTE) 36, 37 CMP 04/29/2009 Sodium 139 mmol/L 135-144 38 Potassium 4.6 mmol/L 3.6-5.2 38 Chloride 101 mmol/L 97-110 38 Carbon Dioxide 28 mmol/L 23-32 38 Glucose 86 mg/dL 70-105 38 BUN 15 mg/dL 6-22 38 Creatinine 0.7 mg/dL 0.5-1.3 38 BUN/CR 21 Ratio 38 Calcium 9.2 mg/dL 8.6-10.2 38 Total Protein 6.7 g/dL 5.8-7.8 38 Albumin 4.3 g/dL 3.5-4.8 38 Globulin 2.4 g/dL 2.0-3.5 38 A/G Ratio 1.8 Ratio 1.0-2.2 38 Total Bilirubin 1.5 mg/dL High 0.3-1.2 38 Alkaline Phosphatase 66 U/L 24-140 38 Alt 15 U/L 5-45 38 Ast 24 U/L 12-40 38 Anion Gap 15 mmol/L 8-16 38 GFR Calculation > 60 mL/min 60-175 38, 39 GFR For > 60 mL/min 60-175 38, 40 CBC With Auto Diff 04/29/2009 WBC 7.9 K/ul 4.0-10.9 38 RBC 4.94 M/ul 4.20-5.40 38 Hemoglobin 14.3 GM/dl 12.5-16.0 38 Hematocrit 42.8 % 36.0-47.0 38 MCV 86.6 FL 80.0-97.0 38 MCH 28.9 pg 27.0-31.0 38 MCHC 33.3 g/dL 32.0-36.0 38 RDW 14.3 % 11.5-14.5 38 Platelet Count 393 K/ul 140-440 38 Neutrophils 67.9 % 50-70 38 Lymphocytes 21.4 % 20-44 38 Monocytes 6.4 % 2-9 38 Eosinophil 3.9 % 0-4 38 Basophil 0.4 % 0-2 38 Absolute Neutrophils 5.4 K/ul 2.05-7.63 38 Absolute Lymphocytes 1.7 K/ul 0.8-4.8 38 Absolute Monocytes 0.5 K/ul 0.1-1.0 38 Absolute Eosinophils 0.3 K/ul 0.1-0.5 38 Absolute Basophils 0.0 K/ul 0.0-0.3 38 Hematology Comment (Comm2) N/A 38 Laboratory test finding 04/29/2009 TSH 0.86 uIU/ml 0.34-5.60 38 Vitamin D, 25 Hydroxy 36 ng/mL 31-100 38 Lipid Panel 04/29/2009 Cholesterol 217 mg/dL High 50-199 38 Triglycerides 141 mg/dL 10-150 38 HDL 49 mg/dL 35-85 38, 41 Chol/HDL Ratio 4.4 Ratio 3.7-5.6 38, 42 VLDL 28 mg/dL 2-29 38 LDL (Calc) 140 mg/dL High 20-129 38, 43 CBC With Auto Diff 08/26/2007 WBC 9.3 K/ul 4.0-10.9 44 RBC 4.52 M/ul 4.20-5.40 44 Hemoglobin 13.3 GM/dl 12.5-16.0 44 Hematocrit 39.8 % 36.0-47.0 44 MCV 88.0 FL 80.0-97.0 44 MCH 29.4 pg 27.0-31.0 44 MCHC 33.4 g/dL 32.0-36.0 44 RDW 13.7 % 11.5-14.5 44 Platelet Count 419 K/ul 140-440 44 Neutrophils 66.8 % 50-70 44 Lymphocytes 24.8 % 20-44 44 Monocytes 4.9 % 2-9 44 Eosinophil 3.1 % 0-4 44 Basophil 0.4 % 0-2 44 Absolute Neutrophils 6.2 K/ul 2.05-7.63 44 Absolute Lymphocytes 2.3 K/ul 0.8-4.8 44 Absolute Monocytes 0.5 K/ul 0.1-1.0 44 Absolute Eosinophils 0.3 K/ul 0.1-0.5 44 Absolute Basophils 0.0 K/ul Low 0.1-0.3 44 Basic (BMP) 07/02/2007 Sodium 138 mmol/L 135-144 45 Potassium 4.4 mmol/L 3.6-5.2 45 Chloride 102 mmol/L 97-110 45 Carbon Dioxide 29 mmol/L 23-33 45 Glucose 82 mg/dL 70-105 45 BUN 12 mg/dL 6-22 45 Creatinine 0.7 mg/dL 0.5-1.3 45 BUN/CR 17 Ratio 12.0-20.0 45 Anion Gap 11 mmol/L 8-16 45 Calcium 9.3 mg/dL 8.6-10.2 45 GFR Calculation > 60 mL/min 45, 46 GFR For > 60 mL/min 45, 47 Hepatic Liver Panel 07/02/2007 Total Protein 6.8 g/dL 5.8-7.8 45 Albumin 4.1 g/dL 3.5-4.8 45 Total Bilirubin 1.5 mg/dL High 0.3-1.2 45 Direct Bilirubin 0.2 mg/dL 0.0-0.5 45 Alkaline Phosphatase 57 U/L 24-140 45 Alt 13 U/L 4-45 45 Ast 22 U/L 12-40 45 CBC With Auto Diff 07/02/2007 WBC 8.6 K/ul 4.0-10.9 45 RBC 4.76 M/ul 4.20-5.40 45 Hemoglobin 14.2 GM/dl 12.5-16.0 45 Hematocrit 41.6 % 36.0-47.0 45 MCV 87.5 FL 80.0-97.0 45 MCH 29.8 pg 27.0-31.0 45 MCHC 34.1 g/dL 32.0-36.0 45 RDW 14.5 % 11.5-14.5 45 Platelet Count 441 K/ul High 140-440 45 Neutrophils 63.8 % 50-70 45 Lymphocytes 20.8 % 20-44 45 Monocytes 6.1 % 2-9 45 Eosinophil 8.9 % High 0-4 45 Basophil 0.4 % 0-2 45 Absolute Neutrophils 5.5 K/ul 2.05-7.63 45 Absolute Lymphocytes 1.8 K/ul 0.8-4.8 45 Absolute Monocytes 0.5 K/ul 0.1-1.0 45 Absolute Eosinophils 0.8 K/ul High 0.1-0.5 45 Absolute Basophils 0.0 K/ul Low 0.1-0.3 45 Laboratory test finding 07/02/2007 TSH 0.69 uIU/ml 0.34-5.60 45 Vitamin D, 25 Hydroxy 36 ng/mL 19-58 45 Basic (BMP) 05/28/2007 Sodium 140 mmol/L 135-144 Potassium 5.2 mmol/L 3.6-5.2 Chloride 106 mmol/L 97-110 Carbon Dioxide 29 mmol/L 23-33 Glucose 117 mg/dL High 70-105 BUN 18 mg/dL 6-22 Creatinine 0.7 mg/dL 0.5-1.3 BUN/CR 26 Ratio High 12.0-20.0 Anion Gap 10 mmol/L 8-16 Calcium 9.4 mg/dL 8.6-10.2 GFR Calculation > 60 mL/min 48 GFR For > 60 mL/min 49 CBC With Auto Diff 05/07/2007 WBC 12.1 K/ul High 4.0-10.9 RBC 4.83 M/ul 4.20-5.40 Hemoglobin 14.0 GM/dl 12.5-16.0 Hematocrit 42.4 % 36.0-47.0 MCV 87.7 FL 80.0-97.0 MCH 28.9 pg 27.0-31.0 MCHC 33.0 g/dL 32.0-36.0 RDW 13.0 % 11.5-14.5 Platelet Count 429 K/ul 140-440 Neutrophils 76.8 % High 50-70 Lymphocytes 11.9 % Low 20-44 Monocytes 2.2 % 2-9 Eosinophil 8.9 % High 0-4 Basophil 0.2 % 0-2 Absolute Neutrophils 9.3 K/ul High 2.05-7.63 Absolute Lymphocytes 1.4 K/ul 0.8-4.8 Absolute Monocytes 0.3 K/ul 0.1-1.0 Absolute Eosinophils 1.1 K/ul High 0.1-0.5 Absolute Basophils 0.0 K/ul Low 0.1-0.3 Hepatic Liver Panel 05/07/2007 Total Protein 7.2 g/dL 5.8-7.8 Albumin 4.3 g/dL 3.5-4.8 Total Bilirubin 1.3 mg/dL High 0.3-1.2 Direct Bilirubin 0.2 mg/dL 0.0-0.5 Alkaline Phosphatase 53 U/L 24-140 Alt 16 U/L 4-45 Ast 20 U/L 12-40 CBC With Auto Diff 04/05/2007 WBC 8.1 K/ul 4.0-10.9 45 RBC 4.99 M/ul 4.20-5.40 45 Hemoglobin 14.5 GM/dl 12.5-16.0 45 Hematocrit 42.6 % 36.0-47.0 45 MCV 85.3 FL 80.0-97.0 45 MCH 29.0 pg 27.0-31.0 45 MCHC 34.0 g/dL 32.0-36.0 45 RDW 13.0 % 11.5-14.5 45 Platelet Count 384 K/ul 140-440 45 Neutrophils 67.9 % 50-70 45 Lymphocytes 21.9 % 20-44 45 Monocytes 5.7 % 2-9 45 Eosinophil 4.2 % High 0-4 45 Basophil 0.3 % 0-2 45 Absolute Neutrophils 5.5 K/ul 2.05-7.63 45 Absolute Lymphocytes 1.8 K/ul 0.8-4.8 45 Absolute Monocytes 0.5 K/ul 0.1-1.0 45 Absolute Eosinophils 0.3 K/ul 0.1-0.5 45 Absolute Basophils 0.0 K/ul Low 0.1-0.3 45 CMP 04/05/2007 Sodium 138 mmol/L 135-144 45 Potassium 5.6 mmol/L High 3.6-5.2 45, 50 Chloride 103 mmol/L 97-110 45 Carbon Dioxide 29 mmol/L 23-33 45 Glucose 107 mg/dL High 70-105 45 BUN 15 mg/dL 6-22 45 Creatinine 0.8 mg/dL 0.5-1.3 45 BUN/CR 19 Ratio 12.0-20.0 45 Calcium 9.5 mg/dL 8.6-10.2 45, 51 Total Protein 7.3 g/dL 5.8-7.8 45 Albumin 4.0 g/dL 3.5-4.8 45 Globulin 3.3 g/dL 2.0-3.5 45 A/G Ratio 1.2 Ratio 1.0-2.2 45 Total Bilirubin 1.6 mg/dL High 0.3-1.2 45, 52 Alkaline Phosphatase 57 U/L 24-140 45 Alt 15 U/L 4-45 45 Ast 22 U/L 12-40 45 Anion Gap 12 mmol/L 8-16 45 GFR Calculation > 60 mL/min 45, 53 GFR For > 60 mL/min 45, 54 Lipid Panel 04/05/2007 Cholesterol 249 mg/dL High 50-199 45 Triglycerides 128 mg/dL 10-150 45 HDL 61 mg/dL 35-85 45 Chol/HDL Ratio 4.1 Ratio 45 VLDL 26 mg/dL 45 LDL (Calc) 162 mg/dL High 20-129 45 Laboratory test finding 04/05/2007 TSH 0.97 uIU/ml 0.34-5.60 45 CBC With Auto Diff 08/03/2005 WBC 6.6 K/ul 4.0-10.9 45 RBC 4.57 M/ul 4.20-5.40 45 Hemoglobin 13.2 GM/dl 12.5-16.0 45 Hematocrit 39.2 % 36.0-47.0 45 MCV 85.6 FL 80.0-97.0 45 MCH 28.9 pg 27.0-31.0 45 MCHC 33.8 g/dL 32.0-36.0 45 RDW 12.9 % 11.5-14.5 45 Platelet Count 361 K/ul 140-440 45 Neutrophils 63.2 % 50-70 45 Lymphocytes 24.1 % 20-44 45 Monocytes 5.0 % 2-9 45 Eosinophil 7.7 % High 0-4 45 Basophil 0.0 % 0-2 45 Absolute Neutrophils 4.2 K/ul 2.05-7.63 45 Absolute Lymphocytes 1.6 K/ul 0.8-4.8 45 Absolute Monocytes 0.3 K/ul 0.1-1.0 45 Absolute Eosinophils 0.5 K/ul 0.1-0.5 45 Absolute Basophils 0.0 K/ul Low 0.1-0.3 45 Laboratory test finding 08/03/2005 TSH 1.45 uIU/ml 0.50-6.00 45 Basic (BMP) 08/03/2005 Sodium 142 mmol/L 135-144 45 Potassium 5.7 mmol/L High 3.6-5.2 45, 55 Chloride 107 mmol/L 97-110 45 Carbon Dioxide 29 mmol/L 23-33 45 Glucose 99 mg/dL 70-105 45 BUN 18 mg/dL 6-22 45 Creatinine 0.7 mg/dL 0.5-1.3 45 BUN/CR 26 Ratio High 12.0-20.0 45 Anion Gap 12 mmol/L 8-16 45 Calcium 9.0 mg/dL 8.6-10.2 45, 56 GFR White Male 119 45 GFR White Female 88 45 GFR Black Male 144 45 GFR Black Female 107 45 GFR Guidelines 0 45, 57 Lipid Panel 08/03/2005 Cholesterol 183 mg/dL 50-199 45 Triglycerides 72 mg/dL 10-150 45 HDL 51 mg/dL 35-85 45 Chol/HDL Ratio 3.6 Ratio 45 VLDL 14 mg/dL 45 LDL (Calc) 118 mg/dL 20-129 45 Laboratory test 07/27/2005 [facility], Thinprep - SEE REFERENCE [place] 58 finding [place] <SEE NOTE> Vaginitis Direct Ag 07/27/2005 Result - [place] NEGATIVE FOR TRI 59 (Affirm) -[place] <SEE NOTE> CBC 12/18/2002 WBC 6.8 K/ul 4.1-10.9 RBC 4.79 M/ul 4.20-6.30 Hemoglobin 13.8 GM/dl 12.5-15.0 Hematocrit 41.3 % 37.0-51.0 MCV 86.3 FL 80.0-97.0 MCH 28.9 pg 26.0-32.0 MCHC 33.4 g/dL 31.0-36.0 RDW 13.0 % 11.5-14.5 Platelet Count 451 K/ul High 140-440 Neutrophils 60.8 % 50-70 Lymphocytes 28.2 % 20-44 Monocytes 6.1 % 2-9 Eosinophil 4.5 % High 0-4 Basophil 0.4 % 0-2 Absolute Neutrophils 4.2 K/ul 2.05-7.63 Absolute Lymphocytes 1.9 K/ul 0.8-4.8 Absolute Monocytes 0.4 K/ul 0.1-1.0 Absolute Eosinophils 0.3 K/ul 0.1-0.5 Absolute Basophils 0.0 K/ul Low 0.1-0.3 CMP 12/18/2002 Sodium 142 mmol/L 135-145 Potassium 5.7 mmol/L High 3.4-5.3 60 Chloride 105 mmol/L 98-111 Carbon Dioxide 29 mmol/L 22-33 Glucose 107 mg/dL High 70-105 BUN 17 mg/dL 6-26 Creatinine 0.9 mg/dL 0.5-1.5 BUN/CR 19 Ratio 12.0-20.0 Calcium 9.4 mg/dL 8.6-10.3 Total Protein 7.5 g/dL 6.2-8.3 Albumin 3.9 g/dL 3.5-5.0 Globulin 3.6 g/dL 2.7-4.3 A/G Ratio 1.1 Ratio 1.0-2.2 Total Bilirubin 1.1 mg/dL 0.1-1.3 Ast 20 U/L 8-42 Alt 13 U/L 3-42 Alkaline Phosphatase 67 U/L 24-140 Anion Gap 14 mmol/L 10-20 Lipid Panel 12/18/2002 Cholesterol 202 mg/dL High 50-199 Triglycerides 129 mg/dL 30-200 HDL 47 mg/dL 35-85 Chol/HDL Ratio 4.3 Ratio VLDL 26 mg/dL LDL (Calc) 129 mg/dL 20-129 CBC 10/24/2002 WBC 7.6 K/ul 4.1-10.9 RBC 4.84 M/ul 4.2-6.3 Hemoglobin 14.3 GM/dl 12.0-16.0 Hematocrit 42.0 % 37.0-51.0 MCV 86.9 FL 80-97 MCH 29.6 pg 26.0-32.0 MCHC 34.0 g/dL 31.0-36.0 RDW 12.8 % 11.5-14.5 Platelet Count 444 K/ul High 140-440 Neutrophils 59.9 % 50-70 Lymphocytes 28.6 % 20-44 Monocytes 6.8 % 2-9 Eosinophil 4.2 % High 0-4 Basophil 0.5 % 0-2 Absolute Neutrophils 4.6 K/ul 2.05-7.63 Absolute Lymphocytes 2.2 K/ul 0.8-4.8 Absolute Monocytes 0.5 K/ul 0.1-1.0 Absolute Eosinophils 0.3 K/ul 0.1-0.5 Absolute Basophils 0.0 K/ul Low 0.1-0.3 Lipid Panel 09/01/2002 Cholesterol 205 mg/dL High 50-199 Triglycerides 186 mg/dL 30-200 HDL 38 mg/dL 35-85 Chol/HDL Ratio 5.4 Ratio VLDL 37 mg/dL LDL (Calc) 130 mg/dL High 20-129 Basic (BMP) 09/01/2002 Sodium 142 mmol/L 135-145 Potassium 5.2 mmol/L 3.4-5.3 Chloride 107 mmol/L 98-111 Carbon Dioxide 27 mmol/L 22-33 Glucose 97 mg/dL 70-105 BUN 22 mg/dL 6-26 Creatinine 0.9 mg/dL 0.5-1.5 BUN/CR 24 Ratio High 12.0-20.0 Anion Gap 13 mmol/L 10-20 Calcium 9.0 mg/dL 8.6-10.3 CBC 09/01/2002 WBC 6.4 K/ul 4.1-10.9 RBC 4.66 M/ul 4.2-6.3 Hemoglobin 13.5 GM/dl 12.0-16.0 Hematocrit 40.5 % 37.0-51.0 MCV 86.9 FL 80-97 MCH 28.9 pg 26.0-32.0 MCHC 33.2 g/dL 31.0-36.0 RDW 12.4 % 11.5-14.5 Platelet Count 419 K/ul 140-440 Neutrophils 54.6 % 50-70 Lymphocytes 31.6 % 20-44 Monocytes 6.4 % 2-9 Eosinophil 7.1 % High 0-4 Basophil 0.3 % 0-2 Absolute Neutrophils 3.5 K/ul 2.05-7.63 Absolute Lymphocytes 2.0 K/ul 0.8-4.8 Absolute Monocytes 0.4 K/ul 0.1-1.0 Absolute Eosinophils 0.5 K/ul 0.1-0.5 Absolute Basophils 0.0 K/ul Low 0.1-0.3 Lipid TX Panel 05/30/2002 Cholesterol 263 mg/dL High 50-199 Triglycerides 217 mg/dL High 30-200 HDL 56 mg/dL 35-85 LDL (Calc) 164 mg/dL High 20-129 Chol/HDL Ratio 4.7 Ratio VLDL 43 mg/dL CMP 05/30/2002 Sodium 141 mmol/L 135-145 Potassium 4.5 mmol/L 3.4-5.3 Chloride 102 mmol/L 98-111 Carbon Dioxide 29 mmol/L 22-33 Glucose 91 mg/dL 70-105 BUN 19 mg/dL 6-26 Creatinine 1.0 mg/dL 0.5-1.5 BUN/CR 19 Ratio 12.0-20.0 Calcium 9.2 mg/dL 8.6-10.3 Total Protein 7.6 g/dL 6.2-8.3 Albumin 4.4 g/dL 3.5-5.0 Globulin 3.2 g/dL 2.7-4.3 A/G Ratio 1.4 Ratio 1.0-2.2 Total Bilirubin 1.2 mg/dL 0.1-1.3 Ast 27 U/L 8-42 Alt 29 U/L 3-42 Alkaline Phosphatase 61 U/L 24-140 Anion Gap 15 mmol/L 10-20 Laboratory test finding 05/30/2002 TSH 2.71 uIU/ml 0.50-6.00 CBC 05/30/2002 WBC 11.1 K/ul High 4.1-10.9 RBC 4.98 M/ul 4.2-6.3 Hemoglobin 14.6 GM/dl 12.0-16.0 Hematocrit 43.2 % 37.0-51.0 MCV 86.9 FL 80-97 MCH 29.3 pg 26.0-32.0 MCHC 33.7 g/dL 31.0-36.0 RDW 13.2 % 11.5-14.5 Platelet Count 500 K/ul High 140-440 Neutrophils 51.5 % 50-70 Lymphocytes 40.6 % 20-44 Monocytes 6.3 % 2-9 Eosinophil 1.2 % 0-4 Basophil 0.4 % 0-2 Absolute Neutrophils 5.8 K/ul 2.05-7.63 Absolute Lymphocytes 4.5 K/ul 0.8-4.8 Absolute Monocytes 0.7 K/ul 0.1-1.0 Absolute Eosinophils 0.1 K/ul 0.1-0.5 Absolute Basophils 0.0 K/ul Low 0.1-0.3 Laboratory test finding 05/29/2002 Urine Culture DELETED 1 This sample is drawn by:NB. 2 Updated reference range on new analyzer 3 5.9 No visible hemolysis. 4 Updated reference range on new analyzer 5 Concerning GFR Guidelines: Normal function or mild renal disease, if clinically at risk: >/=60 mL/min Moderately decreased: 30-59 Severely decreased: 15-29 Renal failure: <15 Glomerular Filtration Rate (GFR) is estimated based on the MDRD equation, which assumes a steady state for creatinine as recommended by the National Kidney Disease Education Program in conjunction with the National Institutes of Health and the National Kidney Foundation. Clinical conditions in which it may be necessary to measure GFR by using clearance methods include extremes of age and body size, severe malnutrition or obesity, diseases of skeletal muscle, paraplegia or quadriplegia, vegetarian diet, rapidly changing kidney function, and calculation of the dose of potentially toxic drugs that are excreted by the kidneys. 6 Concerning GFR Guidelines for Americans: Normal function or mild renal disease, if clinically at risk: >/=60 mL/min Moderately decreased: 30-59 Severely decreased: 15-29 Renal failure: <15 7 Updated reference range on new analyzer 8 Updated reference range on new analyzer 9 5.6 No visible hemolysis. 10 Updated reference range on new analyzer 11 Concerning GFR Guidelines for Americans: Normal function or mild renal disease, if clinically at risk: >/=60 mL/min Moderately decreased: 30-59 Severely decreased: 15-29 Renal failure: <15 12 Concerning GFR Guidelines: Normal function or mild renal disease, if clinically at risk: >/=60 mL/min Moderately decreased: 30-59 Severely decreased: 15-29 Renal failure: <15 Glomerular Filtration Rate (GFR) is estimated based on the MDRD equation, which assumes a steady state for creatinine as recommended by the National Kidney Disease Education Program in conjunction with the National Institutes of Health and the National Kidney Foundation. Clinical conditions in which it may be necessary to measure GFR by using clearance methods include extremes of age and body size, severe malnutrition or obesity, diseases of skeletal muscle, paraplegia or quadriplegia, vegetarian diet, rapidly changing kidney function, and calculation of the dose of potentially toxic drugs that are excreted by the kidneys. 13 Updated reference range on new analyzer 14 Per NCEP ATP III Guidelines: Results lower than 40 mg/dL are suggestive of increased risk for coronary artery disease. Results > or=to 60 mg/dL are considered a negative risk factor. 15 Per NCEP ATP III Guidelines: Normal Population <130 Patients with medical conditions: CHD/DM Optimal: <100 Borderline high: 130-159 High: 160-189 Very high: >189 16 136 Testing performed on an aliquot tube. 17 5.2 No visible hemolysis. 18 Concerning GFR Guidelines for Americans: Normal function or mild renal disease, if clinically at risk: >/=60 mL/min Moderately decreased: 30-59 Severely decreased: 15-29 Renal failure: <15 19 Concerning GFR Guidelines: Normal function or mild renal disease, if clinically at risk: >/=60 mL/min Moderately decreased: 30-59 Severely decreased: 15-29 Renal failure: <15 Glomerular Filtration Rate (GFR) is estimated based on the MDRD equation, which assumes a steady state for creatinine as recommended by the National Kidney Disease Education Program in conjunction with the National Institutes of Health and the National Kidney Foundation. Clinical conditions in which it may be necessary to measure GFR by using clearance methods include extremes of age and body size, severe malnutrition or obesity, diseases of skeletal muscle, paraplegia or quadriplegia, vegetarian diet, rapidly changing kidney function, and calculation of the dose of potentially toxic drugs that are excreted by the kidneys. 20 This sample is drawn by:CASSIE 21 Unless otherwise specified, testing performed by [facility] [address] [place] [id number] 22 Concerning GFR Guidelines for Americans: Normal function or mild renal disease, if clinically at risk: >/=60 mL/min Moderately decreased: 30-59 Severely decreased: 15-29 Renal failure: <15 23 Concerning GFR Guidelines: Normal function or mild renal disease, if clinically at risk: >/=60 mL/min Moderately decreased: 30-59 Severely decreased: 15-29 Renal failure: <15 Glomerular Filtration Rate (GFR) is estimated based on the MDRD equation, which assumes a steady state for creatinine as recommended by the National Kidney Disease Education Program in conjunction with the National Institutes of Health and the National Kidney Foundation. Clinical conditions in which it may be necessary to measure GFR by using clearance methods include extremes of age and body size, severe malnutrition or obesity, diseases of skeletal muscle, paraplegia or quadriplegia, vegetarian diet, rapidly changing kidney function, and calculation of the dose of potentially toxic drugs that are excreted by the kidneys. 24 This sample is drawn by:JEREMIAH 25 Concerning GFR Guidelines for Americans: Normal function or mild renal disease, if clinically at risk: >/=60 mL/min Moderately decreased: 30-59 Severely decreased: 15-29 Renal failure: <15 26 Concerning GFR Guidelines: Normal function or mild renal disease, if clinically at risk: >/=60 mL/min Moderately decreased: 30-59 Severely decreased: 15-29 Renal failure: <15 Glomerular Filtration Rate (GFR) is estimated based on the MDRD equation, which assumes a steady state for creatinine as recommended by the National Kidney Disease Education Program in conjunction with the National Institutes of Health and the National Kidney Foundation. Clinical conditions in which it may be necessary to measure GFR by using clearance methods include extremes of age and body size, severe malnutrition or obesity, diseases of skeletal muscle, paraplegia or quadriplegia, vegetarian diet, rapidly changing kidney function, and calculation of the dose of potentially toxic drugs that are excreted by the kidneys. 27 Per NCEP ATP III Guidelines: Results lower than 40 mg/dL are suggestive of increased risk for coronary artery disease. Results > or=to 60 mg/dL are considered a negative risk factor. 28 Per NCEP ATP III Guidelines: Normal Population <130 Patients with medical conditions: CHD/DM Optimal: <100 Borderline high: 130-159 High: 160-189 Very high: >189 29 Microbiology results SOURCE MIDU FINAL RESULT No growth 30 [facility] [place] [address] GYNECOLOGIC CYTOLOGY REPORT Accession Number: [id number] Source of Specimen(s): A: [facility] Vaginal / Cervical Pap Smear - One Vial Clinical Diagnosis and History: Date of Last Menstrual Period: years Menstrual History: Post-menopausal Other Clinical Conditions: Last Pap Smear: 2009 normal REFLEX TO DIGENE HPV ASSAY IF RESULTS OF THIS PAP ARE ASCUS Specimen Adequacy Satisfactory for evaluation Presence of endocervical/transformation zone cannot be assessed due to atrophic changes. It may be difficult to distinguish squamous metaplastic cells from parabasal type cells in specimens showing atrophy due to a variety of hormonal changes including menopause, post changes and progestational agents. General Categorization Negative for intraepithelial lesion or malignancy Interpretation NEGATIVE FOR INTRAEPITHELIAL LESION OR MALIGNANCY Acute inflammatory cells Reported: 11/11/2012 Electronically Signed Out By Lorri MARSH(ASCP) [facility] dol Unless otherwise specified, testing performed by [facility] [place] [address] [place] [address] 31 5.6 No visible hemolysis. 32 Concerning GFR Guidelines: Normal function or mild renal disease, if clinically at risk: >/=60 mL/min Moderately decreased: 30-59 Severely decreased: 15-29 Renal failure: <15 Glomerular Filtration Rate (GFR) is estimated based on the MDRD equation, which assumes a steady state for creatinine as recommended by the National Kidney Disease Education Program in conjunction with the National Institutes of Health and the National Kidney Foundation. Clinical conditions in which it may be necessary to measure GFR by using clearance methods include extremes of age and body size, severe malnutrition or obesity, diseases of skeletal muscle, paraplegia or quadriplegia, vegetarian diet, rapidly changing kidney function, and calculation of the dose of potentially toxic drugs that are excreted by the kidneys. 33 Concerning GFR Guidelines for Americans: Normal function or mild renal disease, if clinically at risk: >/=60 mL/min Moderately decreased: 30-59 Severely decreased: 15-29 Renal failure: <15 34 Per NCEP ATP III Guidelines: Results lower than 40 mg/dL are suggestive of increased risk for coronary artery disease. Results > or=to 60 mg/dL are considered a negative risk factor. 35 Per NCEP ATP III Guidelines: Optimal: <100 Near optimal: 100-129 Borderline high: 130-159 High: 160-189 Very high: >189 36 This sample is drawn by:SALMA 37 [facility] [place] [address] GYNECOLOGIC CYTOLOGY REPORT Accession Number: [id number] Source of Specimen(s): A: [facility] Vaginal / Cervical Pap Smear - One Vial Clinical Diagnosis and History: Date of Last Menstrual Period: many years Menstrual History: Post-menopausal Other Clinical Conditions: Last Pap Smear: 2007 normal REFLEX TO DIGENE HPV ASSAY IF RESULTS OF THIS PAP ARE ASCUS Specimen Adequacy Satisfactory for evaluation Absence of endocervical/transformation zone component General Categorization Negative for intraepithelial lesion or malignancy Interpretation NEGATIVE FOR INTRAEPITHELIAL LESION OR MALIGNANCY Reported: 05/03/2009 Electronically Signed Out By Michelle MARSH(ASCP) [facility] Pathology, PMar[place]osaCM[place] tabor ICD9 Code: V70.0 Unless otherwise specified, [facility] performed [facility] [place] [address] [place] [address] 38 FASTING This sample is drawn by:[facility] Concerning GFR GUIDELINES: Normal Function or Mild Renal Disease, if clinically at risk: >/=60mL/min Moderately decreased: 30-59 Severely decreased: 15-29 Renal Failure: <15 Glomerular Filtration Rate (GFR) is estimated based on the MDRD equation, which assumes a steady state for creatinine as recommended by the National Kidney Disease Education Program in conjunction with the National Institutes of Health and the National Kidney Foundation. Clinical conditions in which it may be necessary to measure GFR by using clearance methods include extremes of age and body size, severe malnutrition or obesity, diseases of skeletal muscle, paraplegia or quadriplegia, vegetarian diet, rapidly changing kidney function, and calculation of the dose of potentially toxic drugs that are excreted by the kidneys. 40 Concerning GFR GUIDELINES: Normal Function or Mild Renal Disease, if clinically at risk: >/=60mL/min Moderately decreased: 30-59 Severely decreased: 15-29 Renal Failure: <15 41 PER NCEP ATP III GUIDELINES: RESULTS LOWER THAN 40 MG/DL ARE SUGGESTIVE OF INCREASED RISK FOR CORONARY ARTERY DISEASE. RESULTS > OR=TO 60 MG/DL ARE CONSIDERED A NEGATIVE RISK FACTOR. 42 INTERPRETATION OF CHOL-HDL RATIO CHD RISK FEMALE MALE VERY HIGH >8.3 >14.3 HIGH 5.6 - 8.3 6.7 - 14.3 AVERAGE 3.7 - 5.6 4.0 - 6.7 BELOW AVERAGE 2.5 - 3.7 2.7 - 4.0 PROTECTED <2.5 <2.7 43 PER NCEP ATP III GUIDELINES: OPTIMAL: <100 NEAR OPTIMAL: 100 - 129 BORDERLINE HIGH: 130 - 159 HIGH: 160 - 189 VERY HIGH: >[address] KULKARNI FAX [phone] AUTO FAX IN 08/25 45 FASTING 46 Concerning GFR GUIDELINES: Normal Function or Mild Renal Disease, if clinically at risk: >/=60mL/min Moderately decreased: 30-59 Severely decreased: 15-29 Renal Failure: <15 Glomerular Filtration Rate (GFR) is estimated based on the MDRD equation, which assumes a steady state for creatinine as recommended by the National Kidney Disease Education Program in conjunction with the National Institutes of Health and the National Kidney Foundation. Clinical conditions in which it may be necessary to measure GFR by using clearance methods include extremes of age and body size, severe malnutrition or obesity, diseases of skeletal muscle, paraplegia or quadriplegia, vegetarian diet, rapidly changing kidney function, and calculation of the dose of potentially toxic drugs that are excreted by the kidneys. 47 Concerning GFR GUIDELINES: Normal Function or Mild Renal Disease, if clinically at risk: >/=60mL/min Moderately decreased: 30-59 Severely decreased: 15-29 Renal Failure: <15 48 Concerning GFR GUIDELINES: Normal Function or Mild Renal Disease, if clinically at risk: >/=60mL/min Moderately decreased: 30-59 Severely decreased: 15-29 Renal Failure: <15 Glomerular Filtration Rate (GFR) is estimated based on the MDRD equation, which assumes a steady state for creatinine as recommended by the National Kidney Disease Education Program in conjunction with the National Institutes of Health and the National Kidney Foundation. Clinical conditions in which it may be necessary to measure GFR by using clearance methods include extremes of age and body size, severe malnutrition or obesity, diseases of skeletal muscle, paraplegia or quadriplegia, vegetarian diet, rapidly changing kidney function, and calculation of the dose of potentially toxic drugs that are excreted by the kidneys. 49 Concerning GFR GUIDELINES: Normal Function or Mild Renal Disease, if clinically at risk: >/=60mL/min Moderately decreased: 30-59 Severely decreased: 15-29 Renal Failure: <15 50 NO VISIBLE HEMOLYSIS 51 The difference between the most recent result of 9.0 and the current result of 9.5 exceeds the absolute delta value of 0.3 as defined for this test. 52 The difference between the most recent result of 1.1 and the current result of 1.6 exceeds the absolute delta value of 0.3 as defined for this test. 53 Concerning GFR GUIDELINES: Normal Function or Mild Renal Disease, if clinically at risk: >/=60mL/min Moderately decreased: 30-59 Severely decreased: 15-29 Renal Failure: <15 Glomerular Filtration Rate (GFR) is estimated based on the MDRD equation, which assumes a steady state for creatinine as recommended by the National Kidney Disease Education Program in conjunction with the National Institutes of Health and the National Kidney Foundation. Clinical conditions in which it may be necessary to measure GFR by using clearance methods include extremes of age and body size, severe malnutrition or obesity, diseases of skeletal muscle, paraplegia or quadriplegia, vegetarian diet, rapidly changing kidney function, and calculation of the dose of potentially toxic drugs that are excreted by the kidneys. 54 Concerning GFR GUIDELINES: Normal Function or Mild Renal Disease, if clinically at risk: >/=60mL/min Moderately decreased: 30-59 Severely decreased: 15-29 Renal Failure: <15 55 NO VISIBLE HEMOLYSIS 56 The difference between the most recent result of 9.4 and the current result of 9.0 exceeds the absolute delta value of 0.3 as defined for this test. 57 Normal Function or Mild Renal Disease, if clinically at risk: >/=60 mL/ min Moderately decreased: 30-59 Severely decreased: 15-29 Renal Failure: <15 Glomerular Filtration Rate (GFR) is estimated based on the MDRD equation, which assumes a steady state for creatinine as recommended by the National Kidney Disease Education Program in conjunction with the National Institutes of Health and the National Kidney Foundation. Clinical conditions in which it may be necessary to measure GFR by using clearance methods include extremes of age and body size, severe malnutrition or obesity, diseases of skeletal muscle, paraplegia or quadriplegia, vegetarian diet, rapidly changing kidney function, and calculation of the dose of potentially toxic drugs that are excreted by the kidneys. 58 SEE REFERENCE LAB REPORT 59 NEGATIVE FOR TRICHOMONAS VAG.,GARDNERELLA VAG.,AND ZARA SPECIES 60 NO VISIBLE HEMOLYSIS AEB Procedures Date CPT Code Description Status Comment 01/17/2017 04989 Electrocardiogram Complete Completed 08/01/2016 Mammogram Completed 08/01/2016 Bone Mineral Density Test Completed 03/20/2016 Colonoscopy Completed Document: 03/20/16 - Colonoscopy 02/16/2016 64209 Anoscopy Diagnostic Completed 11/23/2014 74648 Admin Of Inj (Therapeutic Completed Phrophylactic Or Diagnostic Subq Inj 01/26/2014 Mammogram Completed 01/26/2014 Bone Mineral Density Test Completed 11/07/2012 51965 Electrocardiogram Complete Completed 11/07/2012 30638 Electrocardiogram Complete Completed 10/19/2011 Mammogram Completed 10/19/2011 Bone Mineral Density Test Completed 07/04/2010 Colonoscopy Completed 06/20/2010 Mammogram Completed 05/24/2010 89059 Admin Of Inj (Therapeutic Completed Phrophylactic Or Diagnostic Subq Inj 05/24/2010 78116 Spirometry /PFT W/O Completed Bronchodialator 05/24/2010 42785 Electrocardiogram Complete Completed 05/11/2009 Mammogram Completed 05/11/2009 Bone Mineral Density Test Completed 04/29/2009 36064 Electrocardiogram Complete Completed 10/27/2008 05411 Admin Of Inj (Therapeutic Completed Phrophylactic Or Diagnostic Subq Inj 07/02/2007 81526 Electrocardiogram Complete Completed 03/19/2007 73086 Measure Blood Oxygen Level Completed Single Determination 03/19/2007 63435 Airway Inhalation Treatment Completed 03/19/2007 81676 Airway Inhalation Treatment Completed 05/29/2002 61416 Destruction Lesion/Any Method Completed Premalignant Lesions 05/29/2002 17007 Electrocardiogram Complete Completed 05/28/2001 97737 Electrocardiogram Complete Completed 03/02/2000 30655 Inject/Drain Joint/Bursa Completed Intermediate Encounters Type Date Location Provider CPT E/M Dx Office Visit 07/26/2016 8:20a Eloisa Mcclure RN [facility] 82155 I10 K62.5 Z12.31 M81.0 Office Visit 06/15/2016 9:00a Eloisa Mcclure RN [facility] G0439 Z00.00 I10 K62.5 Office Visit 02/16/2016 11:40a Eloisa Mcclure RN [facility] 28564 K62.5 Z23 K64.4 Office Visit 02/18/2014 8:40a Eloisa Mcclure RN [facility] 04611 789.02 Office Visit 01/16/2014 9:00a Eloisa Mcclure RN [facility] 87257 009.1 724.5 Office Visit 12/31/2013 2:00p Eloisa Mcclure RN [facility] 86975 009.1 Office Visit 12/24/2013 8:20a Eloisa Mcclure RN [facility] 24278 789.04 Office Visit 11/20/2013 9:00a Eloisa Mcclure RN [facility] G0439 V70.5 599.70 V04.81 733.90 V76.19 401.1 782.8 Office Visit 12/26/2012 9:40a Eloisa Mcclure RN [facility] 18264 465.9 Office Visit 11/07/2012 8:40a Eloisa Mcclure RN [facility] 64056 V72.31 733.90 599.70 401.1 616.10 697.9 268.9 V04.81 V04.89 V03.82 V58.69 V76.2 Office Visit 01/26/2012 10:45[place] [address] 466.0 Office Visit 11/28/2011 8:40a Eloisa Mcclure RN [facility] 63065 V58.32 V04.81 Office Visit 10/11/2011 2:20p Eloisa Mcclure, [place] [facility] 35864 401.1 733.90 493.00 616.10 Office Visit 05/24/2010 8:20a Eloisa Mcclure RN [facility] [facility] 49216BC V72.84 401.1 733.90 493.00 V18.51 882.0 Office Visit 04/29/2009 8:15a Eloisa Mcclure RN [facility] 37435 V70.0 V16.49 780.79 401.1 782.8 733.90 Office Visit 04/08/2009 9:00a Eloisa Mcclure RN [facility] 49136 386.11 616.10 401.1 Office Visit 03/03/2008 1:00p Eloisa Mcclure RN [facility] 57232 465.9 Office Visit 07/02/2007 8:15a Eloisa Mcclure RN [facility] 31622 V72.31 401.1 786.2 272.0 794.8 733.90 493.00 V58.69 V76.2 Office Visit 07/01/2007 1:00[place] [address] 493.00 786.2 Office Visit 05/28/2007 9:30[place] [address] 401.1 493.00 724.3 272.0 Office Visit 05/10/2007 11:30[place] [address] 493.00 401.1 786.2 724.3 Office Visit 05/07/2007 10:00[place] [address] 466.0 724.3 401.1 794.8 493.00 Office Visit 04/18/2007 12:45p [facility] 72270 466.0 724.3 493.00 272.0 Office Visit 04/05/2007 8:15[place] [address] 493.00 272.0 Office Visit 03/22/2007 3:00[place] [address] 493.00 Office Visit 03/19/2007 1:30[place] [address] 493.00 466.0 Office Visit 03/05/2007 1:00p Eloisa Mcclure RN [facility] 07912 466.0 Office Visit 02/25/2007 11:30[place] [address] 466.0 Office Visit 02/13/2007 1:45p Eloisa Mcclure RN [facility] 34666 466.0 Office Visit 09/04/2005 3:00[place] [address] 009.0 616.10 Office Visit 07/27/2005 1:15p Eloisa Mcclure RN [facility] 95862 V72.31 V70.0 616.10 Office Visit 04/10/2005 11:20[place] [address] 486 786.2 Office Visit 03/27/2005 10:00[place] [address] 786.2 465.9 466.0 Office Visit 02/17/2005 3:20[place] [address] 786.2 486 Office Visit 01/30/2005 11:30[place] [address] 786.2 Office Visit 01/26/2005 11:20a Eloisa Mcclure RN [facility] 01718 465.9 Office Visit 01/12/2003 2:00[place] [address] 401.1 724.2 616.10 959.2 Office Visit 10/24/2002 9:20[place] [address] 724.2 780.4 401.9 288.3 Office Visit 09/04/2002 10:40[place] [address] 272.0 780.4 789.04 625.9 Office Visit 07/24/2002 8:50[place] [address] 272.0 401.1 599.7 386.00 Office Visit 05/29/2002 8:00[place] [address] 427.61 401.1 780.4 702.0 Office Visit 04/25/2002 10:30[place] [address] 465.9 386.00 Office Visit 10/25/2001 9:40[place] [address] 386.00 Office Visit 09/23/2001 10:10[place] [address] 386.00 Office Visit 07/12/2001 8:40[place] [address] 616.10 386.00 Office Visit 05/28/2001 8:20[place] [address] 401.1 780.4 780.79 627.3 Office Visit 03/18/2001 3:30[place] [address] Office Visit 02/18/2001 4:10p [place] [address] Office Visit 02/15/2000 10:30a Kiley Gomez RN A.N.P. 98709 726.10 Plan of Care 01/17/2017 - Eloisa Cooney RN MS [id number] Essential (primary) tiwcwetfnsgbV39.0 Age-related osteoporosis w/o current pathological natnrsmgH11.12 Unilateral primary osteoarthritis, LEFT kneeL29.2 Pruritus vulvaeNew Medication:Augmented Betamethasone Dipropionate 0.05 %R06.02 Shortness of mtbkywS93.1 SgvjhvgnF83.0 NauseaNew Medication:Ondansetron HCL 4 mg
[2017-02-13] MEDS ORDERED: ceFAZolin 2 GM PREMIX (*) 2 GM/50 ML BAG IVPB ONE (09:00)
[2017-02-13] MEDS ORDERED: Sodium Citrate/Citric Acid* 15 ML UDC ONE (09:00)
[2017-02-13] MEDS ORDERED: Buffered Lidocaine 0.9% SYRIN* 5 ML/SYR SYRINGE ONE (09:01)
[2017-02-13] MEDS ORDERED: Bupivacaine 0.5% SDV PF* 10-30ML VIAL ONE ×2 (09:47→14:04)
[2017-02-13] MEDS ORDERED: fentaNYL* 50 MCG/ML 2 ML VIAL (100 MCG VIAL) ONE (10:13)
[2017-02-13] MEDS ORDERED: Midazolam* 1 MG/ML 2 ML VIAL (2 MG) ONE (10:13)
[2017-02-13] MEDS ORDERED: Morphine PF AMP (0.5MG/ML)* 5 MG/10 ML AMP ONE (11:25)
[2017-02-13] MEDS ORDERED: Propofol* 10 MG/ML 20 ML BTL IV PUSH ONE (12:33)
[2017-02-13] MEDS ORDERED: Bisacodyl SUPP* 10 MG SUPP PR PRN (12:37)
[2017-02-13] MEDS ORDERED: diPHENhydraMINE IV* 50 MG/ML 1 ml VIAL (BENADRYL) IV PRN (12:37)
[2017-02-13] MEDS ORDERED: Polyethylene Glycol 3350* 17 GM PACKET PO PRN (12:37)
[2017-02-13] MEDS ORDERED: oxyCODONE/Acetamin 5/325 MG* TAB PO PRN (12:55)
[2017-02-13] MEDS ORDERED: Naloxone* 0.4 MG/ML 1 ML VIAL IV PRN (12:55)
[2017-02-13] MEDS ORDERED: Codeine TAB* 15 MG PO PRN (13:16)
[2017-02-13] MEDS ORDERED: Phenylephrine INJ* 10 MG/ML 1 ML VIAL (10 MG) ONE (14:15)
[2017-02-13] MEDS ORDERED: Cyclobenzaprine TAB* 10 MG PO PRN (14:18)
--- NOTE | 2017-02-13 14:58 | RAD ---
HISTORY: Status post left knee arthroplasty COMPARISONS: September 20, 2016 VIEWS: 2, Frontal and lateral views of the left knee FINDINGS: BONE DENSITY: Normal. BONES: The patient is status post left knee arthroplasty. There is no hardware failure or osteolysis. JOINTS: The patient is status post left knee arthroplasty. ALIGNMENT: There is no dislocation. SOFT TISSUES: Unremarkable. OTHER FINDINGS: There is postsurgical change to the soft tissues. IMPRESSION: STATUS POST LEFT KNEE ARTHROPLASTY
[2017-02-13] MEDS ORDERED: Scopolamine 1.5 mg* PATCH TRANSDERM SCH (15:00)
[2017-02-13] MEDS ORDERED: Warfarin TAB(*) 6 MG PO ONE (17:00)
[2017-02-13] MEDS: Ondansetron INJ* 2 MG/ML VIAL IV PRN (18:00)
[2017-02-13] MEDS: ceFAZolin 1 GM VIAL(*) 1 GM in D5W 50 ML BAG* 50 ML IVPB SCH (19:57)
[2017-02-13] MEDS: Docusate CAP* 100 MG PO SCH (19:59)
--- NOTE | 2017-02-13 22:28 | CONS ---
CC: Dr. Anne * CONSULTATION REPORT: DATE OF CONSULT: 02/13/17 REQUESTING PHYSICIAN: Dr. Anne. REASON FOR CONSULTATION: History of hypertension. HISTORY OF PRESENT ILLNESS: Caprice Ceballos is a 81-year-old female who has just underwent left total knee replacement by Dr. Anne. The patient has a history of hypertension and the consultation was requested in regards of hypertension control. PAST MEDICAL HISTORY: 1. History of hypertension. 2. Osteoarthritis. 3. History of appendectomy. 4. Status post left carpal tunnel release. 5. History of tonsillectomy. MEDICATIONS: Include amlodipine and valsartan 5/160 mg daily. ALLERGIES: Include TRAMADOL, HYDROCODONE, FLAGYL, caused nausea and vomiting. TESSALON PERLES, caused hives. FAMILY HISTORY: Positive for hypertension and cancer. SOCIAL HISTORY: The patient is retired. Lives with her , who is her surrogate. She denies any tobacco, alcohol, or drug use. REVIEW OF SYSTEMS: The patient complaints of postoperative nausea. She stated that when she had an appendix removed, she stayed in the hospital for 4 days due to postoperative nausea. All the remaining 12 systems were reviewed with the patient and were otherwise negative. PHYSICAL EXAM: Blood pressure of 129/52, heart rate of 60 and regular, respiratory rate 16, oxygen saturation 98% on room air, temperature 97.9. General: The patient is a pleasant 81-year-old female, who is in no acute distress. Alert, awake, and oriented x3. HEENT: Head: Atraumatic, normocephalic. Eyes: Pupils are equal, reactive to light and accommodation. Oropharynx: Clear. Mucosa moist. Neck: Supple. No JVD, no bruit bilaterally. Cardiovascular: Regular rate and rhythm. No murmur. Respiratory : Clear to auscultation bilaterally. Abdomen: Soft, nontender. Bowel sound present in all 4 quadrants. Extremities: There is no edema. The patient has Cryo unit covering the left post-operative knee. Pulses are +2 bilaterally. There is no clubbing or cyanosis. Neuro Evaluation: Speech clear. Cranial nerves II through XII grossly intact. Motor strength is 5/5 bilaterally with limitation of range of motion in the postoperative knee. DIAGNOSTIC STUDIES/LAB DATA: None available. ASSESSMENT AND PLAN: Caprice Ceballos is a 81-year-old female with history of hypertension, who is status post left knee replacement. The management of the postoperative course is as up to Dr. Anne's service. In regards to the patient's hypertension management, it is okay to restart the patient's outpatient medications tomorrow as you are already doing. Thank you for allowing me to see your patient in consultation. We will follow on a p.r.n. basis. [id number]/[facility] #: [id number] MTDD
[2017-02-14] MEDS: Ondansetron INJ* 2 MG/ML VIAL IV PRN ×3 (03:12→23:14)
[2017-02-14] MEDS: Acetaminophen TAB* 325 MG PO PRN (03:13)
[2017-02-14] MEDS: ceFAZolin 1 GM VIAL(*) 1 GM in D5W 50 ML BAG* 50 ML IVPB SCH ×2 (03:59→11:54)
[2017-02-14] MEDS ORDERED: oxyCODONE/Acetamin 5/325 MG* TAB PO PRN (04:00)
[2017-02-14] MEDS: oxyCODONE/Acetamin 5/325 MG* TAB PO PRN ×3 (04:01→13:04)
[2017-02-14 06:57] LABS: Hematocrit 30 % (35-47); Hemoglobin 10.4 g/dl (12.0-16.0); Mean Platelet Volume 7 um3 (7.4-10.4); Platelet Count 295 10^3/ul (150-450)
[2017-02-14 07:06] LABS: INR 1.27 (0.77-1.02)
[2017-02-14 07:12] LABS: EGFR Non-African American 82.1 (>60)
--- NOTE | 2017-02-14 07:33 | PN ---
Progress Note - Progress Note Date of Service: 02/14/17 SOAP: Subjective: Pt. is alert, reports nausea is improved. Objective: LLE - drain removed, tip intact, 300 cc ss drainage. calf soft, distally +df/ pf , full sens lt, 2+ dp pulse. Vital Signs: Temp Pulse Resp BP Pulse Ox 99.5 F 74 16 111/53 94 02/14/17 03:57 02/14/17 03:57 02/14/17 05:56 02/14/17 03:57 02/14/17 03:57 Laboratory Results - last 24 hr 02/14/17 02/14/17 02/14/17 06:40 06:40 06:40 Hgb 10.4 L Hct 30 L Plt Count 295 MPV 7 L INR (Anticoag Therapy) 1.27 H Sodium 133 Potassium 3.7 Chloride 100 L Carbon Dioxide 27 Anion Gap 6 BUN 10 Creatinine 0.69 Est GFR ( Amer) 105.5 Est GFR (Non-Af Amer) 82.1 BUN/Creatinine Ratio 14.5 Glucose 118 H Calcium 8.0 L Assessment: 81 yo F pod 1 s/p LTKA Plan: wbat lle pt/ot pt. is susceptible to n/v - please use zofran with pain meds lovenox today - 4 mg coumadin tonight
[2017-02-14] MEDS ORDERED: Enoxaparin(*) 30 MG/0.3 ML SYR SUBCUT SCH (09:00)
[2017-02-14] MEDS: Docusate CAP* 100 MG PO SCH ×2 (09:01→22:01)
[2017-02-14] MEDS: Vitamin THERAPEUTIC TAB PO SCH (09:01)
[2017-02-14] MEDS: amLODIPine TAB* 5 MG PO SCH (09:07)
[2017-02-14] MEDS: Valsartan TAB* 160 MG PO SCH (09:07)
--- NOTE | 2017-02-14 11:54 | OP ---
DATE OF OPERATION: 02/13/17 - ROOM #350 DATE OF : 39 SURGEON: Anisa Anne MD BUILDING [employer]CTION SUPERINTENDENT: SHANTEL Suero. Ms. Christie did help throughout the procedure with preparation of the leg, wound, retraction, manipulation of the knee and wound closure. ANESTHESIOLOGIST: Dr. Shaw ANESTHESIA: Spinal with adductor nerve block. PRE-OP DIAGNOSIS: Severe end-stage degenerative osteoarthritis of the left knee joint. POST-OP DIAGNOSIS: Severe end-stage degenerative osteoarthritis of the left knee joint. OPERATIVE PROCEDURE: Left total knee arthroplasty. TOURNIQUET TIME: 53 minutes. COMPLICATIONS: None. ESTIMATED BLOOD LOSS: 200 cc SPECIMEN: Bone and cartilage from the left knee joint sent to Pathology. HARDWARE USED: [employer] cemented total knee hardware. Two packages of Simplex bone cement were used. For the femur, a size 5 left narrow femoral component type Legion. For the tibia, a size 3 left tibial baseplate type Morena II. For the insert, a 9-mm posterior stabilized articular insert, size 3-4 and for the patella, a 29-mm 7.5 thickness Morena II 3-peg all poly patella. BRIEF HISTORY/INDICATION: Ms. Ceballos is a 81-year-old female with years of increasingly severe left knee pain. Radiographs showed eywz-vk-tamy arthritis. She failed conservative treatment with antiinflammatories, pain medications and intra-articular injections and physical therapy. Due to continued pain and decreased quality of life, she elected to undergo left total knee arthroplasty. Informed consent was obtained from the patient. She understood the risks of surgery, included but were not limited to bleeding, infection, damage to nearby structures, continued pain, need for further surgery, intraoperative fracture, nerve palsy, hardware failure or loosening, knee stiffness, loss of motion, stroke, heart attack, blood clot and . She wished to proceed. INTRAOPERATIVE FINDINGS: Intraoperatively, the patient was noted to have tricompartmental loss of cartilage. This was severe end-stage arthritis with varus deformity. DESCRIPTION OF PROCEDURE: Ms. Ceballos was identified in the preanesthesia unit. Her left lower extremity was marked as the correct operative side. Informed consent was signed and placed in the chart. The patient was taken to the operating room and placed under spinal anesthesia with an adductor nerve block. A Herring catheter was placed. Tourniquet was placed on the left thigh. Left lower extremity was prepped and draped in the usual sterile fashion. Preop time-out was made to correctly identify the patient, side and site. Appropriate perioperative antibiotics were given within 1 hour of incision. Tourniquet was inflated and total tourniquet time for this procedure was 53 minutes. A 12-cm midline skin incision was made with a 10-blade and carried down through the extensor mechanism. A new 10-blade was used to make a standard medial parapatellar arthrotomy. The patella was subluxed laterally. Electrocautery was used to subperiosteally elevate soft tissue off the superomedial tibia to the mid- sagittal plane. Medial osteophytes were carefully removed. The knee was flexed up. ACL and anterior horn of the lateral meniscus was sharply released. A drill was used to enter the distal femur. Intramedullary distal femoral cutting guide was pinned in the position. Oscillating saw was used to make the distal femoral cut. Next, the external rotation guide was pinned on the distal femur and the distal femur was sized to a size 5. Size 5 multi-cutting jig was pinned on the distal femur. Oscillating saw was used to make the appropriate 4 chamfer cuts. The PCL was completely released. The tibia was subluxed anteriorly. Extramedullary tibial cutting guide was pinned on the proximal tibia. Oscillating saw was used to make a proximal tibial cut, perpendicular to the mechanical axis of the tibia. The bone was carefully removed. The knee was brought out into full extension. Spacer block had good fit with medial and lateral ligamentous balancing. The knee was in full extension. Flexion and extension gaps were well balanced. The knee was flexed up. Lamina assembler trim was placed both medially and laterally. Any remaining meniscus was carefully removed using electrocautery. Posterior osteophytes were removed with a curved osteotome and curette. Tibial tray and drop cole were placed to once again confirm a satisfactory tibial cut. This is confirmed. A size 5 left narrow femoral trial was impacted on to the distal femur. This had excellent fit. The box for the posterior stabilized implant was prepared using a reamer and box-cut osteotome. A trial 3 tibial tray with a 9-mm insert trial was placed and the knee was taken through a range of motion. The knee had full extension to 130 degrees of flexion. There was good patellofemoral tracking. The patella was everted. The patella was noted to be significantly thin. A 7-mm of patellar bone and cartilage was carefully removed from the patella using oscillating saw. The patella was sized to a size 29. The 3-peg holes were drilled through the size 29 guide. Trial 29 patella with 7.5 thickness was placed and the knee was taken through a range of motion. There was satisfactory patellofemoral tracking. All trials were carefully removed. The tibia was subluxed anteriorly and sized to a size 3. Proximal tibia was prepared using a keel punch. All bony cut surfaces were copiously irrigated with sterile saline and dried. Final implants were cemented into place starting with the tibia, followed by the femur and last the patella. A 9-mm insert trial was placed while the knee was brought out into full extension. The tourniquet was turned down at 53 minutes. The knee was copiously irrigated with sterile saline. Electrocautery was used to obtain meticulous hemostasis Once the cement had fully cured, the insert trial was removed. Any excess cement was carefully removed around the implant capsule. Final implant chosen was a 9-mm posterior stabilized articular insert size 3-4. This was locked into position on the tibial tray. Stability of the insert was checked and rechecked and noted to be stable. The knee was once again copiously irrigated with sterile saline. The extensor mechanism was closed using interrupted #1 Vicryl, closed over a medium Hemovac drain. The rest of the incision was closed in a layered fashion using 0 and 2-0 Vicryls. Skin was closed using running 3-0 nylon suture. Sterile Xeroform, 4x4s and Webril were used to cover the incision. Phoenix wrap and cold packs were placed over this. The patient's anesthesia was reversed without difficulty. She was taken to the PACU in stable condition. Intended weightbearing will be weightbearing as tolerated. Intended DVT prophylaxis will be Coumadin with a Lovenox bridge. [id number]/[facility] #: [id number] EDUARD
[2017-02-14] MEDS ORDERED: Warfarin TAB(*) 4 MG PO ONE (17:00)
[2017-02-14] MEDS ORDERED: PROCHLORPERAZINE INJ 5 MG/ML 2 ML VIAL ONE (19:57)
[2017-02-14] MEDS: PROCHLORPERAZINE INJ 5 MG/ML 2 ML VIAL IV PRN (20:02)
[2017-02-14] MEDS: HYDROmorphone INJ* 2 MG/ML CARPUJECT SYRINGE IV SLOW PU PRN (20:17)
[2017-02-15] MEDS: Acetaminophen TAB* 325 MG PO PRN ×2 (01:58→13:51)
[2017-02-15] MEDS: PROCHLORPERAZINE INJ 5 MG/ML 2 ML VIAL IV PRN ×4 (02:18→23:48)
[2017-02-15] MEDS: HYDROmorphone INJ* 2 MG/ML CARPUJECT SYRINGE IV SLOW PU PRN ×2 (02:57→07:24)
[2017-02-15] MEDS: Ondansetron INJ* 2 MG/ML VIAL IV PRN (05:52)
[2017-02-15 06:03] LABS: Hematocrit 30 % (35-47); Hemoglobin 9.9 g/dl (12.0-16.0); Mean Platelet Volume 7 um3 (7.4-10.4); Platelet Count 296 10^3/ul (150-450)
[2017-02-15 06:09] LABS: INR 3.09 (0.77-1.02)
[2017-02-15] MEDS ORDERED: HYDROmorphone TAB* 2 MG PO PRN (07:48)
[2017-02-15] MEDS: Valsartan TAB* 160 MG PO SCH (09:12)
[2017-02-15] MEDS: Docusate CAP* 100 MG PO SCH ×2 (09:12→19:57)
[2017-02-15] MEDS: Vitamin THERAPEUTIC TAB PO SCH (09:12)
[2017-02-15] MEDS: amLODIPine TAB* 5 MG PO SCH (09:12)
--- NOTE | 2017-02-15 11:03 | PN ---
Progress Note - Progress Note Date of Service: 02/15/17 SOAP: Subjective: []Patient seen at bedside. Her pain is well controlled with IV pain med, she has nausea on and off. She does not feel strong enough to go home today. No Dizziness, CP or SOB Objective: [] Vital Signs Temp 97.7 F 02/15/17 07:50 Pulse 96 02/15/17 10:41 Resp 18 02/15/17 10:46 BP 104/51 02/15/17 07:50 Pulse Ox 93 02/15/17 10:41 Intake & Output 02/14/17 02/15/17 02/15/17 18:59 06:59 18:59 Intake Total 1304 2027 Output Total 700 200 Balance 1304 1327 -200 Intake: IV Fluids 899 1117 ABX - CEFAZOLIN 55 LR 844 1117 Oral 405 910 Output: Urine 250 200 Straight Cath 450 Laboratory Last Values Hgb 9.9 g/dl (12.0-16.0) L 02/15/17 05:40 Hct 30 % (35-47) L 02/15/17 05:40 Plt Count 296 10^3/ul (150-450) 02/15/17 05:40 MPV 7 um3 (7.4-10.4) L 02/15/17 05:40 INR (Anticoag Therapy) 3.09 (0.77-1.02) H 02/15/17 05:40 Sodium 133 mmol/L (133-145) 02/14/17 06:40 Potassium 3.7 mmol/L (3.5-5.0) 02/14/17 06:40 Chloride 100 mmol/L (101-111) L 02/14/17 06:40 Carbon Dioxide 27 mmol/L (22-32) 02/14/17 06:40 Anion Gap 6 mmol/L (2-11) 02/14/17 06:40 BUN 10 mg/dL (6-24) 02/14/17 06:40 Creatinine 0.69 mg/dL (0.51-0.95) 02/14/17 06:40 Est GFR ( Amer) 105.5 (>60) 02/14/17 06:40 Est GFR (Non-Af Amer) 82.1 (>60) 02/14/17 06:40 BUN/Creatinine Ratio 14.5 (8-20) 02/14/17 06:40 Glucose 118 mg/dL (70-100) H 02/14/17 06:40 Calcium 8.0 mg/dL (8.6-10.3) L 02/14/17 06:40 General: Well appearing, NAD LLE: Dr Anne changed dressing this morning without complication. DF, PF intact. DP/PT pulse 2+ BL LE: Calves supple and nontender without erythema, edema or palpable cords. Assessment: []POD 2 sp left total knee arthroplasty Plan: []WBAT PT/OT Hold coumadin DC 02/16 as patient is still relying on IV pain medications.
[2017-02-15] MEDS: Ondansetron ODT TAB* 4 MG SL PRN ×2 (12:16→18:04)
[2017-02-15] MEDS: HYDROmorphone TAB* 4 MG PO PRN ×3 (14:56→23:54)
[2017-02-16] MEDS: Ondansetron ODT TAB* 4 MG SL PRN ×2 (03:14→10:11)
[2017-02-16] MEDS: HYDROmorphone TAB* 4 MG PO PRN ×2 (03:52→08:29)
[2017-02-16 06:00] LABS: Hematocrit 27 % (35-47); Hemoglobin 9.3 g/dl (12.0-16.0); Mean Platelet Volume 7 um3 (7.4-10.4); Platelet Count 300 10^3/ul (150-450)
[2017-02-16 06:18] LABS: INR 3.12 (0.77-1.02)
[2017-02-16] MEDS: PROCHLORPERAZINE INJ 5 MG/ML 2 ML VIAL IV PRN (06:22)
[2017-02-16 08:20] VITALS: BP 121/54
[2017-02-16] MEDS: Vitamin THERAPEUTIC TAB PO SCH (08:29)
[2017-02-16] MEDS: Docusate CAP* 100 MG PO SCH (08:29)
[2017-02-16] MEDS: amLODIPine TAB* 5 MG PO SCH (08:29)
[2017-02-16] MEDS: Valsartan TAB* 160 MG PO SCH (08:30)
--- NOTE | 2017-02-16 09:58 | PN ---
Progress Note - Progress Note Date of Service: 02/16/17 SOAP: Subjective: POD #3 Left TKA. Doing ok, c/o pain at knee but feels stable for d/c home. Denies CP/SOB or calf pain Objective: Vitals: Temp Pulse Resp BP Pulse Ox 99.1 F 86 16 121/54 93 02/16/17 07:30 02/16/17 07:30 02/16/17 08:29 02/16/17 07:30 02/16/17 08:00 Gen: A&O X3, NAD at rest LLE: Dressing C/D/I. +f/e at ankle and MTPs, N/V intact. Calf soft, NT Labs: Laboratory Results - last 24 hr 02/16/17 02/16/17 05:23 05:23 Hgb 9.3 L Hct 27 L Plt Count 300 MPV 7 L INR (Anticoag Therapy) 3.12 H Assessment: POD #3 Left TKA, doing well Plan: D/c home today with VNS/home PT INR 3.12, hold coumadin tonight and 2mg 02/17, 1. F/u with Dr. Anne 10-14 days.
--- NOTE | 2017-02-17 01:20 | DS ---
DISCHARGE SUMMARY: DATE OF ADMISSION: 02/13/17 DATE OF DISCHARGE: 02/16/17 PROVIDER: Anisa Anne MD * (DICTATED BY SHANTEL GREENE) ADMITTING DIAGNOSIS: Severe end-stage osteoarthritis of the left knee. DISCHARGE DIAGNOSIS: Severe end-stage osteoarthritis of the left knee status post left total knee arthroplasty. SECONDARY DIAGNOSIS: Hypertension. HISTORY OF PRESENT ILLNESS: Ms. Ceballos is a 81-year-old female who has had ongoing complaints of increasingly severe left knee pain. She failed conservative management and elected to proceed with left total knee arthroplasty. HOSPITAL COURSE: On 02/13/17, the patient was admitted to [facility] and underwent a successful left total knee arthroplasty by Dr. Anne. She recovered briefly in the post-anesthesia care unit and was transferred to the short- stay surgical unit in stable condition. On postop day #1, the patient's pain was controlled with oral and IV pain medications. She was able to ambulate a short distance with the use of a rolling walker with the assistance of physical therapy. She had a mild acute blood loss anemia with an H and H of 10.4 and 30. INR was 1.27 with 6 mg of Coumadin previously. On postop day #2, the patient did have an increase in pain; however, was given oral and IV pain medications with good effect. H and H was 9.9 and 30, INR was 3.09 with 4 mg previously. Coumadin was then held on postop day #2. Postop day #3, the patient was more comfortable with oral pain medications only. She was able to work with physical therapy without any difficulty. H and H was stable at 9.3 and 27. INR was 3.12. The patient was found stable for discharge home at this point. Throughout the hospital course, the patient remained normotensive and afebrile. DISCHARGE CONDITION: Stable. DISCHARGE MEDICATIONS: The patient will have Percocet 5/325 1 to 2 tabs p.o. q.4 to 6 hours p.r.n. pain; Coumadin, she is instructed to hold on 02/16/17, she will resume 2 mg on 02/17/17 and 02/18/17. She will have a repeat INR drawn with visiting nurse on 02/18/17. Colace 100 mg p.o. b.i.d. She will resume her home medication of Diovan 160 mg p.o. daily. DISCHARGE INSTRUCTIONS: The patient will be weightbearing as tolerated with the use of a rolling walker. She will have home visiting nurse services for wound care and INR draw. She will have home physical therapy. She will follow up in the office 10 to [address] Anne for suture removal and reevaluation. The patient is under-standing to apply a dry dressing to her knee as needed. She will begin washing the wound on postop day #4. She is understanding not to submerge the incision in the bath tub, hot tub or swimming pool. She is understanding to call the office with any problems or concerns. She will go directly to the emergency room with any chest pain, shortness of breath, fever greater than 101.5, calf pain or swelling. All of the patient's questions were answered to her satisfaction. SHANTEL GREENE [id number]/[facility] #: [id number] EDUARD
== END 2017-02-16 11:00 | disposition home health service (06) | DRG 470 ==
LOC: AA 08:42 → SSU 15:34
PROVIDERS: ADMIT Orthopaedic Surgery Adult Reconstructive Orthopaedic Surgery; ATTEND Orthopaedic Surgery Adult Reconstructive Orthopaedic Surgery
PROC: 0SRD0J9 Replacement of Left Knee Joint with Synthetic Substitute, Cemented, Open Approach (ICD-10-PCS; principal; 2017-02-13 11:00)
DX: M17.12 Unilateral primary osteoarthritis, left knee (principal); D62 Acute posthemorrhagic anemia; M25.762 Osteophyte, left knee; I10 Essential (primary) hypertension; M21.162 Varus deformity, not elsewhere classified, left knee; Z82.49 Family history of ischemic heart disease and other diseases of the circulatory system; Z88.6 Allergy status to analgesic agent; Z88.8 Allergy status to other drugs, medicaments and biological substances; R11.0 Nausea
CPT/HCPCS: 36415; 80048; 85014; 85018; 85049; 85610; 88305; 88311; 94760; A9270-GY; C1776; J0690; J0780; J1170; J1200; J1650; J2250; J2405; J2704; J3010

== ENCOUNTER 2017-03-05 19:30 | Emergency (ER) | payer MEDICARE, BC ==
--- OUTSIDE RECORDS SUMMARY | 2017-03-05 20:05 | XMS REPORT ---
:1935 External Reference #:[id number] Author Organization [facility] Address [address] [address] Phone [phone] Care Team Providers Name Role Phone Eloisa Cooney [employer] Primary Care Physician Unavailable Payers Type Date Identification Numbers Payment Provider Subscriber Medicare Primary Effective: Policy Number: Medicare Caprice Varela 2002 [id number] Tucker PayID: [id number] [address] [place] [address] Medigap Part B Expires: 2016 Policy Number: [id number] [facility] Caprice Ceballos PayID: [id number] [address] [place] [address] Medigap Part B Expires: 2016 Policy Number: BS [facility] Caprice Ceballos [id number] PayID: [id number] [address] [address] Medigap Part B Policy Number: [id number] [facility] Caprice Ceballos Group Name: [id number] PayID: [id number] [place]hta[place] echols [id number] Problems Date Description Provider Status Onset: 09/20/2016 [...] Form Strength Qnty SIG Indications Ordering Provider Gabapentin Active Capsules 300mg 30caps 1 tab by Z47.1 Anisa 018 sangeeta Anne M.D. before bed Percocet Active Tablets 5-325mg 90tabs 1 -2 tabs Melonie 017 by sangeeta Solano M.D. every 4-6 hours as needed pain Coumadin Active Tablets 2mg 60tabs take 1 tab Anisa 017 by sangeeta Anne M.D. every night at bedtime or as directed by md through visiting nurse. Do not take prior to surgery. Stool Active Capsules 100mg 90caps Take 1 tab Anisa Softener 017 po 2-3x Ivana Anne daily while on narcotic pain med Zofran Active Tablets 4mg 30tabs 1 tab by Anisa 017 sangeeta Anne M.D. every 6 hours as needed for nausea Amlodipine Active Tablets 5-160mg Unknown Besylate-Vals 000 dyan Tramadol Hx Tablets 37.5-325mg 30tabs 1-2 tab by Luis Servin 017 - sangeeta Hull MD /Acetaminophe every 4-6 n 017 hours as needed Amlodipine 000 Hx Tablets 5mg 1 by mouth Unknown Besylate 000 - every day 017 Valsartan 0 Hx Tablets 160mg 1 by mouth Unknown 000 - every day 017 Medications Administered in Office Medication Date Status Form Strength Qnty SIG Indications Ordering Provider Depomedrol Administered Injection Anisa 40MG Danie Anne M.D. Depomedrol Administered Injection Dirk Wilbert, 40MG 010 M.D. Vital Signs Date Vital Result Comment 02/23/2017 Height 60 inches 5'0" Weight 125.00 lb Heart Rate 62 /min Respiratory Rate 15 /min Body Temperature 98.7 F Pain Level 2 BMI (Body Mass Index) 24.4 kg/m2 01/31/2017 Height 60 inches 5'0" Weight 130.00 [...] BMI (Body Mass Index) 25.4 kg/m2 Results Test Date Test Result H/L Range Note Urinalysis Profile 01/31/2017 Urine Color Straw 1 Urine Appearance Clear 1 Urine Specific [place] 1.009 Low 1.010-1.030 1 Urine pH 7.0 5-9 1 Urine Urobilinogen Negative Negative 1 Urine Ketones Negative Negative 1 Urine Protein Negative Negative 1 Urine Leukocytes 2+ Negative 1 Urine Blood 1+ Negative 1 Urine Nitrite Negative Negative 1 Urine Bilirubin Negative Negative 1 Urine Glucose Negative Negative 1 Urine White Blood Cell Trace(0-5/hpf) Absent 1 Urine Red Blood Cell Trace(0-2/hpf) Absent 1 Urine Bacteria Absent Absent 1 Urine Squamous Epithelial Cell Present Absent 1 Comp Metabolic Panel 01/31/2017 Sodium 139 mmol/L 133-145 1 Potassium 4.5 mmol/L 3.5-5.0 1 Chloride 102 mmol/L 101-111 1 Co2 Carbon Dioxide 30 mmol/L 22-32 1 Anion Gap 7 mmol/L 2-11 1 Glucose 83 mg/dL 70-100 1 Blood Urea Nitrogen 13 mg/dL 6-24 1 Creatinine 0.61 mg/dL 0.51-0.95 1 BUN/Creatinine Ratio 21.3 High 8-20 1 Calcium 9.4 mg/dL 8.6-10.3 1 Total Protein 7.4 g/dL 6.4-8.9 1 Albumin 4.4 g/dL 3.2-5.2 1 Globulin 3.0 g/dL 2-4 1 Albumin/Globulin Ratio 1.5 1-3 1 Total Bilirubin 0.90 mg/dL 0.2-1.0 1 Alkaline Phosphatase 87 U/L 34-104 1 Alt 8 U/L 7-52 1 Ast 16 U/L 13-39 1 Egfr Non- 94.6 >60 1 Egfr 121.7 >60 1, 2 CBC No Diff 01/31/2017 White Blood Count 8.5 10^3/uL 3.5-10.8 1 Red Blood Count 4.84 10^6/uL 4.0-5.4 1 Hemoglobin 13.9 g/dL 12.0-16.0 1 Hematocrit 41 % 35-47 1 Mean Corpuscular Volume 85 fL 80-97 1 Mean Corpuscular Hemoglobin 29 pg 27-31 1 Mean Corpuscular HGB Conc 34 g/dL 31-36 1 Red Cell Distribution Width 14 % 10.5-15 1 Platelet Count 452 10^3/uL High 150-450 1 Mean Platelet Volume 7 um3 Low 7.4-10.4 1 Inr/Protime 01/31/2017 Inr 0.90 0.77-1.02 1, 3 Laboratory test finding 01/31/2017 Partial Thrombo Time 30.1 seconds 26.0 -36.3 1, 4 PTT Type & Screen 01/31/2017 Patient Blood Type A Positive 1 Antibody Screen NEGATIVE 1 Urine Culture And Sensitivities 01/31/2017 Urine Culture SEE RESULT BELOW 1, 5 1 AA 1/2 2 Because ethnic data is not always readily available, this report includes an eGFR for both -Americans and non- Americans. The National Kidney Disease Education Program (NKDEP) does not endorse the use of the MDRD equation for patients that are not between the ages of 18 and 70, are , have extremes of body size, muscle mass, or nutritional status, or are non- or non-. According to the National Kidney Foundation, irrespective of diagnosis, the stage of the disease is based on the level of kidney function: Stage Description GFR(mL/min/1.73 m(2)) 1 Kidney damage with normal or decreased GFR 90 2 Kidney damage with mild decrease in GFR 60-89 3 Moderate decrease in GFR 30-59 4 Severe decrease in GFR 15-29 5 Kidney failure <15 (or dialysis) 3 Please note the change in INR reference range effective 17. 4 AA 02/13 5 SEE RESULT BELOW Name: TUCKERCAPRICE W : [address]: Anisa Anne MD Acct: [id number] Unit: [id number] AGE: 81 Location: [facility] Re01/31/17 SEX: F Status: REG REF SPEC: [id number] ELIZABETH: 01/31/17-[address] [facility] [address]: Anisa Anne MD REQ: [id number] RECD: 01/31/17-151 STATUS: JOSÉ MANUEL KWAN DR: Eloisa Cooney H[employer] C[employer]TER _ SOURCE: URINE SPDESC: ORDERED: Urine Culture COMMENTS: AA 02/13 QUERIES: Urine Source: Clean Catch Procedure Result Reported Site Urine Culture Final 02/01/17- 1259 ML No growth of clinically significant organisms * ML - MAIN LAB ([facility]) . END OF REPORT * ML=Testing performed at Main Lab DEPARTMENT OF PATHOLOGY, [address] [place] [address] Kali Chavira M.D. Director [facility] # [id number] Procedures Date CPT Code Description Status 02/13/2017 24543 TKR Total Knee Replacement Completed 02/13/2017 58170 TKR Total Knee Replacement Completed 11/23/2016 11199 Carpal Tunnel Release Completed 09/20/2016 Inject/Drain Joint/Bursa Major Completed 02/02/2010 28708 Xray Knee 3 Views Completed 02/02/2010 13453 Rad Exam; Knee, Ap&L Completed 02/02/201098670 Inject/Drain Joint/Bursa Major Completed Encounters Type Date Location Provider CPT E/M Dx [facility] Kamini Eugene M.D. 07190 I10 6:54a Hospitalists Z96.652 Office Visit 11/08/2016 1:45p [facility] [place] [address] G56.03 C.M.A. Office Visit 09/20/2016 9:30a [facility] Anisa Anne M.D. 16833 M25.562 Astrid M25.462 M17.12 Office Visit 01/04/2014 5:26p [facility], Jimena Coyle [place] [address] 558.9 Hospitalists 787.02 789.00 790.6 Office Visit 01/03/2014 5:25p [facility], Jimena Coyle [place] [address] 790.6 Hospitalists 789.00 787.02 558.9 Office Visit 02/02/2010 9:00a [facility] Faheem Atkins M.D. 07547 716.96 C.[place] Plan of Care Future Appointment(s):03/09/2017 10:00 am - Anisa Anne M.D. at [facility]/23/2017 - Anisa Anne M.D.Z47.1 Aftercare following joint replacement surgeryNew Medication:Gabapentin 300 mgNew Therapy:Physical TherapyFollow up:Follow up: 2 jelmdI72.652 Presence of left artificial knee xtjbgW79.562 Pain in left knee
--- NOTE | 2017-03-05 22:07 | ED ---
Abdominal Pain/Female - HPI Summary HPI Summary: 81 female presents to ED with complaints of diffuse/left sided abdominal pain that began today associated with diarrhea and dry heaving/nausea. Denies vomiting. Denies blood in stool. Patient states she recently had knee replacement surgery 2 weeks ago, was placed on narcotics for pain and was experiencing diarrhea. Took stool softeners, ate prune juice and on laxatives for the past two weeks along with pain medication and has now been experiencing loose stool for the past 4 days. States today she ended up feeling generalized weakness, intermittent dull abdominal pain, decreased appetite and dry heaving. Denies coughing, sore throat, fever, chest pain and trouble breathing. No urinary symptoms. No other complaints at this time. PMHx include HTN-resolved no longer medicated for and restless leg syndrome. No recent travel, no recent antibiotics and no recent take out food. Also states she doesn't feel she is drinking enough water. Was on warfarin due to recent surgery however was told level was too high today and to stop taking it for the next few days until re- draw by PCP. - History of Current Complaint Chief Complaint: EDAbdPain Stated Complaint: NAUSEA/VOMITING Time Seen by Provider: 03/05/17 21:22 Hx Obtained From: Patient, Family/[employer] - son and daughter in law Onset/Duration: Sudden Onset, Lasting Days - 2-3 of diarrhea, 1 of pain/ discomfort, Still Present Timing: Hours Severity Initially: Mild Severity Currently: Mild Pain Intensity: 1 Pain Scale Used: 0-10 Numeric Location: Diffuse, Discrete At: LUQ, Discrete At: LLQ Radiates: No Character: Dull - ache Aggravating Factor(s): Nothing Alleviating Factor(s): Nothing Associated Signs and Symptoms: Positive: Decreased Appetite, Nausea - dry heaving, Diarrhea Allergies/Adverse Reactions: Allergies Allergy/AdvReac Type Severity Reaction Status Date / Time Hydrocodone Allergy Severe Vomiting Verified 02/13/17 09:42 Metronidazole [From Flagyl] Allergy Severe Nausea And Verified 02/13/17 09:42 Vomiting Tramadol Allergy Severe Nausea Verified 02/13/17 09:42 Benzonatate [From Tessalon] Allergy Intermediate Hives Verified 02/13/17 09:42 PMH/Surg Hx/FS Hx/Imm Hx Endocrine/Hematology History: Reports: Hx Anemia Denies: Hx Diabetes Cardiovascular History: Reports: Hx Hypertension Respiratory History: Reports: Hx Chronic Bronchitis GI History: Reports: Hx Diverticulosis, Hx Hiatal Hernia History: Denies: Hx Renal Disease Musculoskeletal History: Reports: Hx Arthritis - OSTEO LEFT KNEE AND HANDS, Hx Osteoporosis, Other Musculoskeletal History - restless leg syndrome Sensory History: Reports: Hx Cataracts - 2010 [facility], Hx Contacts or Glasses - GLASSES, 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 Denies: Hx Hearing Aid Opthamlomology History: Reports: Hx Cataracts - 2010 BILAT, Hx Contacts or Glasses - GLASSES - Cancer History Cancer Type, Location and Year: appendectomy 2009, tonsillectomy Hx Chemotherapy: No Hx Radiation Therapy: No - Surgical History Surgery Procedure, Year, and Place: appendectomy 2009, tonsillectomy 1945 , cataract surgery 2010 B[facility] Hx Anesthesia Reactions: No - Immunization History Date of Tetanus Vaccine: Up to date Date of Influenza Vaccine: 11/2016 Immunizations Up to Date: Yes Infectious Disease History: No Infectious Disease History: Denies: History Other Infectious Disease, Traveled Outside the in Last 30 Days - Family History Known Family History: Positive: None - Social History Alcohol Use: None Substance Use Type: Reports: None Smoking Status (MU): Former Smoker Type: Cigarettes Amount Used/How Often: 1 pack a day Length of Time of Smoking/Using Tobacco: 5 years - quit 40 years ago Have You Smoked in the Last Year: No Review of Systems Constitutional: Negative Cardiovascular: Negative Respiratory: Negative Positive: Abdominal Pain, Diarrhea, Nausea Skin: Negative Positive: Weakness - when nauseous All Other Systems Reviewed And Are Negative: Yes Physical Exam Triage Information Reviewed: Yes Vital Signs On Initial Exam: Initial Vitals Temp Pulse Resp BP Pulse Ox 98.5 F 72 18 132/78 98 03/05/17 19:36 03/05/17 19:36 03/05/17 19:36 03/05/17 19:36 03/05/17 19:36 Vital Signs Reviewed: Yes Appearance: Positive: Well-Appearing - appears anxious, however comfortable, No Pain Distress, Well-Nourished Skin: Positive: Warm, Skin Color Reflects Adequate Perfusion. Negative: Dry, Numb, Jaundiced, Pale, Erythema @ Head/Face: Positive: Normal Head/Face Inspection Eyes: Positive: Conjunctiva Clear ENT: Positive: Pharyngeal erythema Neck: Positive: Supple, Nontender Respiratory/Lung Sounds: Positive: Clear to Auscultation, Breath Sounds Present. Negative: Rales, Rhonchi, Wheezes Cardiovascular: Positive: Normal, RRR, Pulses are Symmetrical in both Upper and Lower Extremities. Negative: Murmur, Rub Abdomen Description: Positive: No Organomegaly, Soft, Other: - mild tenderness on deep palpation of Left side abdomen, negative murphys. Negative: Bruit, CVA Tenderness (R), CVA Tenderness (L), Distended, Guarding, McBurney's Point Tenderness, Peritoneal Signs, Pulsatile Mass Bowel Sounds: Positive: Present Musculoskeletal: Positive: Normal, Strength/ROM Intact Neurological: Positive: Normal, Sensory/Motor Intact, Alert, Oriented to Person Place, Time, Normal Gait Diagnostics - Vital Signs Vital Signs Temp Pulse Resp BP Pulse Ox 03/05/17 19:36 98.5 F 72 18 132/78 98 - Laboratory Result Diagrams: 03/05/17 22:30 03/05/17 22:30 Lab Statement: Any lab studies that have been ordered have been reviewed, and results considered in the medical decision making process. - CT abd/pelvis wo CT Interpretation: No Acute Changes - negative for colitis, nephrolithiasis, small left renal cyst and small right inguinal hernia containing fat CT Interpretation Completed By: Radiologist - and myself - EKG EKG Cardiac Rate: NL EKG Rhythm: Sinus Rhythm ST Segment: Normal Ectopy: None EKG Interpretation: NSR, no stemi st 72 bpm EKG Comparison: No Significant Change Re-Evaluation - Re-Evaluation First Eval Re-Evaluation Time: 23:50 Change: Unchanged - feeling ok, restless leg syndrome better after medication Second Eval Re-Evaluation Time: 01:40 Change: Improved - feeling better, nausea improved, minimal to no pain, updated on imaging and lab results. normal EKG and second trop Abdominal Pain Fem Course/Dx - Course Course Of Treatment: labs, urinalysis and Ct abd/pelvis obtained. all unremarkable without acute findings. no urinary symptoms will wait for urine culture. normal vitals and physial exam. second troponin zero appears to have been a mistake. patient had no chest pain however complained of weakness and nausea. EKG NSR. probable cause of discomfort and diarrhea due to recent surgery , changing medications, taking laxatives due to taking narcotics and eating a lot of prunes. no concern for infection or other emergent etiology at this time due to exam and lab/imaging findings. patient appeared anxious. probably weak due to lack of appetite and related due some dehydration as not drinking appropriate amount of fluids along with diarrhea. Encouraged fluids, rest, BRAT diet, probiotics and refraining from laxatives.no longer taking narcotics due to no pain. otherwise feels well and healthy without risk factors and significant PMHx. Follow up pcp. aware of worsening signs and symptoms to watch out for. high platelet count noted. patient was taking coumadin due to recent surgery however instructed to stop as levels were too high. did not take today for first time as instructed. low H&H chronic when compared to previous. - Diagnoses Differential Diagnosis: Positive: Urinary Tract Infection, Other - diarrhea, abdominal pain, colitis, gastroenteritis, anxiety, decreased appetite, dehydration, weakness Provider Diagnoses: Diarrhea, Resolved abdominal pain, Decreased appetite Discharge - Discharge Plan Condition: Stable Disposition: HOME Patient Education Materials: Acute Diarrhea (ED), Acute Abdominal Pain (ED) Referrals: Eloisa Cooney [Primary Care Provider] - Additional Instructions: Stick to bananas, rice, applesauce and toast diet to help with diarrhea. Encourage daily probiotics, german yogurt. Give your body and digestive system some time to recuperate from recent surgery. O'Brien, easy diet. Increase fluid intake, stay well hydrated. Rest. Any new or worsening symptoms, as we discussed (increasing pain, blood in stool , vomiting, fever etc) please seek medical attention promptly. Follow up with PCP this week for reevaluation.
[2017-03-05 22:46] LABS: Hematocrit 33 % (35-47); Hemoglobin 10.9 g/dl (12.0-16.0); Mean Corpuscular HGB Conc 33 g/dl (31-36); Mean Corpuscular Hemoglobin 28 pg (27-31); Mean Corpuscular Volume 83 fL (80-97); Mean Platelet Volume 6 um3 (7.4-10.4); Platelet Count 679 10^3/ul (150-450); Red Blood Count 3.94 10^6/ul (4.0-5.4); Red Cell Distribution Width 14 % (10.5-15); White Blood Count 8.1 10^3/ul (3.5-10.8)
[2017-03-05 22:51] LABS: ABS Basophils 0 10^3/ul (0-0.2); ABS Eosinophils 0.1 10^3/ul (0-0.6); ABS Lymphocytes 1.8 10^3/ul (1.0-4.8); ABS Monocytes 0.5 10^3/ul (0-0.8); ABS Neutrophils 5.7 10^3/ul (1.5-7.7); ABS Nucleated RBC 0 10^3/ul; Eosinophil % 1.4 % (0-6); Lymphocyte % 22.2 % (25-47); Nucleated Red Blood Cells % 0
[2017-03-05 23:06] LABS: EGFR Non-African American 76.9 (>60)
[2017-03-05] MEDS ORDERED: Ondansetron INJ* 2 MG/ML VIAL IV ONE (23:23)
[2017-03-06 00:35] LABS: Urine Appearance Clear; Urine Blood 1+ (Negative); Urine Color Straw; Urine Ketones 1+ (Negative); Urine Protein Negative (Negative); Urine Specific Gravity 1.006 (1.010-1.030); Urine Urobilinogen Negative (Negative)
[2017-03-06 01:34] VITALS: BP 147/62
--- NOTE | 2017-03-06 07:48 | RAD ---
INDICATION: Lower abdominal pain. Diarrhea. COMPARISON: CT abdomen pelvis February 02, 2014 TECHNIQUE: Noncontrast axial source images were obtained from the hemidiaphragms to the symphysis pubis. This examination was ordered using a renal stone protocol which is performed without oral or intravenous contrast and therefore has inherent limitations when used to evaluate other intra-abdominal or intrapelvic pathology. Consider conventional contrast enhanced imaging if clinically . Lung bases: The lung bases are clear. Liver: The liver is normal in size. Noncontrast imaging shows no evidence of a hepatic mass or ductal dilatation. Gallbladder: There are no calcified gallstones. There is no evidence of wall thickening or pericholecystic fluid.. Spleen: The spleen is normal in size. The noncontrast CT appearance is normal. Pancreas: Noncontrast imaging shows no pancreatic mass or ductal dilitation. Adrenal glands: No masses are identified. Kidneys/Bladder: There is no evidence of nephrolithiasis or CT evidence of hydronephrosis. Noncontrast imaging shows no evidence of a new renal mass. There is a 1 cm renal cortical hypodensity in the midpole region left kidney better evaluated earlier contrast-enhanced imaging. This likely a cyst. The appearance is unchanged. The bladder is unremarkable.. Adenopathy: There is no evidence of intraperitoneal or retroperitoneal adenopathy. Evaluation is limited without oral contrast. Fluid collections: There are no free or localized fluid collections. Vessels: The aorta and iliac vessels are normal in caliber. There are no significant atherosclerotic changes. The IVC appears normal Pelvic organs: The uterus and adnexa appear normal GI tract: Evaluation of the bowel is limited without oral contrast. There is a moderate-sized hiatal hernia the upper GI tract is otherwise unremarkable on noncontrast evaluation. There are scattered diverticula of the sigmoid colon. The appendix is not visualized compatible with appendectomy. There clips right lower quadrant. Soft tissues: No soft tissue abnormalities of the extraperitoneal abdomen or pelvis are identified. Osseous structures: There is advanced spondylitic change of the lumbar spine. There is little interval change. IMPRESSION: NO ACUTE CT FINDINGS. NO WORRISOME MASS OR INFLAMMATORY CHANGES. SCATTERED DIVERTICULA WITHOUT CT EVIDENCE OF DIVERTICULITIS.
== END 2017-03-06 01:32 | disposition home or self-care (01) ==
LOC: ED 19:30
DX: R19.7 Diarrhea, unspecified (principal); R63.0 Anorexia; R10.9 Unspecified abdominal pain; R11.0 Nausea; Z87.891 Personal history of nicotine dependence; Z86.79 Personal history of other diseases of the circulatory system
CPT/HCPCS: 36415; 74176; 80053; 81003; 81015; 83605; 83690; 83735; 84484; 85025; 86140; 87086; 93005; 99283; J2405

== ENCOUNTER 2017-11-29 06:43 | Day surgery (SDC) | payer MEDICARE, BC ==
[~2017-11-29 06:43] MED LIST changes: -Sodium Citrate/Citric Acid* 15 ML UDC PO ONE
[2017-11-29] MEDS ORDERED: Naloxone* 0.4 MG/ML 1 ML VIAL IV PRN (07:51)
[2017-11-29] MEDS ORDERED: ROPIVACAINE 5 MG/ML 30 ML BTL (0.5%) ONE (07:58)
[2017-11-29 08:52] VITALS: BP 134/62
[2017-11-29] MEDS ORDERED: Propofol* 10 MG/ML 20 ML BTL IV PUSH ONE (09:55)
[2017-11-29] MEDS ORDERED: Lidocaine 2% PF * 5 ML VIAL ONE (09:55)
--- NOTE | 2017-11-29 23:20 | OP ---
DATE OF OPERATION: 11/29/17 [facility] DATE OF : 39. SURGEON: Luis Hull MD. ROLLER VARNISHER: SHANTEL Luu. ANESTHESIOLOGIST: Dr. Rios. ANESTHESIA: Local MAC. PRE-OP DIAGNOSIS: Right carpal tunnel syndrome. POST-OP DIAGNOSIS: Right carpal tunnel syndrome. OPERATIVE PROCEDURE: Right open carpal tunnel release. INDICATIONS: Caprice has progressive right carpal tunnel syndrome. She has done well with the left carpal tunnel release. ESTIMATED BLOOD LOSS: 2 mL. COMPLICATIONS: None. FINDINGS: See above and below. DESCRIPTION OF PROCEDURE: Caprice was seen in the preoperative holding area. The correct site, side, and procedure were identified. We came back to the operating room. The arm was prepped and draped in the usual fashion. A time- out was performed. I anesthetized the operative area. The arm was exsanguinated with the Esmarch and the tourniquet was inflated to 250 mmHg. A 2 to 3 cm longitudinal incision was made in a standard location for an open carpal tunnel release. Dissection was carried down to the subcutaneous tissue and fascia. The transverse carpal ligament was released from distal to proximal. Once the release was completed distally, I came proximally and released the subcutaneous tissue and then released remainder of the transverse carpal ligament and distal antebrachial fascia with the tenotomy scissors under direct visualization. Once the release was complete, there was no pressure on the nerve. We irrigated out the wound. The skin was closed with 4-0 nylon suture. Soft dressings were applied. Tourniquet was deflated and she was taken to the recovery room in stable condition. [id number] #: [id number] MTDD
== END 2017-11-29 09:18 | disposition home or self-care (01) ==
LOC: OREAST 06:43
PROVIDERS: ATTEND Orthopaedic Surgery Hand Surgery
DX: G56.01 Carpal tunnel syndrome, right upper limb (principal); I10 Essential (primary) hypertension; Z87.891 Personal history of nicotine dependence; M19.90 Unspecified osteoarthritis, unspecified site
CPT/HCPCS: J2704; J2795